=== PATIENT | female | born 1945 | race Caucasian/White ===

== ENCOUNTER → 2020-04-12 07:00 | Day surgery (SDC) | payer MEDICARE, OTHER, SELFPAY ==
[2020-04-12 07:38] VITALS: BP 137/58; PULSE 72; RESP 18; TEMP 36.7; O2SAT 97; BMI 26.2
[2020-04-12] MEDS: ferric carboxy (IVPB) 750 MG in sodium chloride 0.9% (100 ml) 100 ML 345 MG IV (08:06)
== END ==
PROVIDERS: PCP Internal Medicine; Visit Provider Internal Medicine
DX: I85.00 Esophageal varices without bleeding (principal)
CPT/HCPCS: 96365; J1439

== ENCOUNTER → 2020-04-19 06:58 | Day surgery (SDC) | payer MEDICARE, OTHER, SELFPAY ==
[2020-04-19 07:06] VITALS: BMI 26.2
[2020-04-19 07:17] VITALS: BP 136/67; PULSE 66; RESP 18; TEMP 36.2; O2SAT 97
[2020-04-19] MEDS: ferric carboxy (IVPB) 750 MG in sodium chloride 0.9% (100 ml) 100 ML 345 MG IV (07:38)
== END ==
PROVIDERS: PCP Internal Medicine; Visit Provider Internal Medicine
DX: I85.00 Esophageal varices without bleeding (principal)
CPT/HCPCS: 96365; J1439

== ENCOUNTER 2022-02-14 13:30 | Outpatient (CLI) | payer MEDICARE, OTHER, SELFPAY ==
--- NOTE | 2022-02-14 | US_ITS ---
WS: [id number] ULTRASOUND ABDOMEN LIMITED CLINICAL INFORMATION: CIRRHOSIS NONALCOHOLIC COMPARISON: None. FINDINGS: Liver Size: Small and cirrhotic Craniocaudal length: 10.5 cm. Echogenicity: Coarse and heterogeneous Surface nodularity: None. Mass (size and location): None. Bile ducts Intrahepatic ducts: Normal. Common bile duct diameter: 4 mm. Gallbladder Normal. Gallstones: None. Gallbladder sludge: None. Gallbladder wall thickening: None. Pericholecystic fluid: None. Sonographic Farrell sign: Absent. Pancreas Normal as visualized. Right kidney: Normal. Hydronephrosis: None. Size: 10.7 cm x 4.1 cm x 4.5 cm. Abdominal aorta and IVC Visualized portions are normal. Calcification. Ascites: None. US/US liver [id number] IMPRESSION: 1. Cirrhotic configuration to the liver with coarse echogenicity. 2. Normal gallbladder. 3. Normal common bile duct. 4. No hydronephrosis in RIGHT kidney.
== END 2022-02-14 13:31 | disposition home or self-care (01) ==
PROVIDERS: PCP Internal Medicine; Visit Provider Internal Medicine
DX: K74.60 Unspecified cirrhosis of liver (principal)
CPT/HCPCS: 76705

== ENCOUNTER 2022-09-07 10:43 | Emergency (ER) | payer MEDICARE, OTHER, SELFPAY ==
[2022-09-07 11:02] VITALS: BP 109/62; PULSE 69; RESP 18; TEMP 36.7; O2SAT 96; BMI 24.5
--- NOTE | 2022-09-07 13:04 | CT_ITS ---
WS: [id number] CT HEAD TECHNIQUE: Noncontrast CT of the head obtained from the skullbase to the vertex. CLINICAL INFORMATION: stroke rule out COMPARISON: None. DLP: 1162.[address] scans at [facility] use at least one of these dose optimization techniques: automated e xposure control; mA and/or kV adjustment per patient size (includes targeted exams where dose is matc hed to clinical indication); or iterative reconstruction. FINDINGS: No evidence of intracranial hemorrhage or mass effect. Ventricular system and basal cisterns are hoover nt. Mild small vessel changes with mild parenchymal volume loss. Vascular calcification. No extra-axi al fluid collections. No evidence of mass or mass effect. Paranasal sinuses and mastoid air cells are well aerated. .Normal visualized soft tissues. CT/CT head wo con* [id number] IMPRESSION: 1. No evidence of intracranial hemorrhage or mass effect. 2. Mild small vessel changes. Mild parenchymal volume loss. 3. Intracranial vascular calcification. 4. No acute intracranial findings.
[2022-09-07 13:47] VITALS: BP 113/68; PULSE 58; RESP 17; O2SAT 98
== END 2022-09-07 15:55 | disposition left against medical advice (07) ==
PROVIDERS: Emergency Provider Family Medicine; PCP Internal Medicine
DX: Z53.21 Procedure and treatment not carried out due to patient leaving prior to being seen by health care provider (principal)
CPT/HCPCS: 70450

== ENCOUNTER → 2022-09-12 09:07 | Outpatient (BNVA) | payer MEDICARE, OTHER, SELFPAY | PROVIDERS: PCP Internal Medicine; Visit Provider Podiatrist Foot & Ankle Surgery | DX: E11.42 Type 2 diabetes mellitus with diabetic polyneuropathy (principal); I73.9 Peripheral vascular disease, unspecified; L60.3 Nail dystrophy; L84 Corns and callosities; M20.41 Other hammer toe(s) (acquired), right foot; M20.42 Other hammer toe(s) (acquired), left foot; M21.41 Flat foot [pes planus] (acquired), right foot; M21.42 Flat foot [pes planus] (acquired), left foot | CPT/HCPCS: 11055; 11721; 99204 ==

== ENCOUNTER 2022-09-19 13:59 | Emergency (ER) | payer MEDICARE, OTHER, SELFPAY ==
[2022-09-19 14:03] VITALS: BP 157/69; PULSE 101; RESP 22; TEMP 37.7; O2SAT 91; BMI 24.5
--- NOTE | 2022-09-19 14:16 | XRR_ITS ---
PROCEDURE INFORMATION: Exam: XR Chest Exam date and time: 09/19/2022 2:23 PM Age: 76 years old Clinical indication: Cough and fever; Additional info: Fever and cough TECHNIQUE: Imaging protocol: Radiologic exam of the chest. Views: 1 view. COMPARISON: CR XR chest 2V* [id number] 09/12/2022 12:27 PM FINDINGS: Lungs: Unremarkable. No consolidation. Pleural spaces: Unremarkable. No pleural effusion. No pneumothorax. Heart/Mediastinum: Unremarkable. No cardiomegaly. Bones/joints: Unremarkable. XR/XR chest 1V portable [id number] IMPRESSION: No acute findings.
[2022-09-19 14:29] LABS: Basophils % 0.2 %; Eosinophils % 0.5 %; Hematocrit 33.4 % (37.0-47.0); Hemoglobin 10.9 g/dL (11.5-15.3); Lymphocytes # 0.5 10^3/uL (0.8-4.8); Lymphocytes % 10.6 %; Mean Corpuscular HGB Conc 32.6 g/dL (30.0-36.0); Mean Corpuscular Hemoglobin 31.1 pg (28.0-34.0); Mean Corpuscular Volume 95.4 fl (81-99); Mean Platelet Volume 11.3 fL (7.4-10.4); Monocytes # 0.3 10^3/uL (0.2-0.9); Monocytes % 7.8 %; Neutrophils # 3.43 10^3/uL (1.8-7.7); Neutrophils % 80.7 %; Nucleated Red Blood Cells % 0 %; Platelet Count 49 10^3/cmm (130-400); Red Cell Distribution Width 15.9 % (12.1-15.1); White Blood Count 4.3 10^3/uL (4.0-10.0)
[2022-09-19 14:44] LABS: Alanine Aminotransferase 17 U/L (0-33); Albumin Level 3.4 g/dL (3.5-5.2); Alkaline Phosphatase 132 U/L (35-105); Anion Gap 15.3 (5-19); Aspartate Amino Transferase 57 U/L (0-32); Blood Urea Nitrogen 10 mg/dL (8-23); Calcium 8.1 mg/dL (8.5-10.5); Carbon Dioxide 24 mmol/L (22-29); Chloride 100 mmol/L (98-107); Globulin 3.4 g/dL (1.3-4.6); Glucose 150 mg/dL (65-115); Osmolality Calculated 282 mOsm/kg (285-295); Potassium 4.3 mmol/L (3.5-5.1); Sodium 135 mmol/L (136-145); Total Bilirubin 2.5 mg/dL (0.15-1.2); Total Protein 6.8 g/dL (6.6-8.7)
[2022-09-19 14:56] LABS: Lactic Sepsis W/Reflex 2.2 mmol/L (0.5-2.2)
--- NOTE | 2022-09-19 14:57 | W.ED.URI ---
Documented by User: SUMAN Hudson 09/20/22 07:32 HPI - URI/Sore Throat General: Chief Complaint: Fever Stated Complaint: Fever Time Seen by Provider: 09/19/22 14:16 History of Present Illness: Patient is a 76-year-old female comes to the ED via EMS with upper respiratory symptoms. EMS gave patient DuoNeb breathing treatment in route. She has been having symptoms of cough, nasal congestion and drainage, fevers, chills and fatigue approximately 2 weeks ago. She was tested for influenza last week and it was positive. Over this past week her cough is gotten worse and she is feeling short of breath and more weak. She has trouble with ambulation at home because she feels so weak. She has been keeping fluids down and denies any episodes of emesis. She did have a couple episodes of diarrhea over the past week but that has since resolved. Her is currently hospitalized for pneumonia. Patient has been doing at home albuterol nebulizer breathing treatments and has not provided any relief. Associated symptoms: Reports chills, fever(s) and nasal congestion; Deny abdominal pain, chest pain, diarrhea, headache(s), nausea or vomiting Review of Systems Const: Reports: fever(s), chills and fatigue Eyes: Denies: change in vision or eye discomfort ENMT: Reports: nasal discharge and nasal congestion; Denies: throat pain or odynophagia Card: Denies: chest pain, palpitations, edema, swelling of feet/ankles, dyspnea on exertion or orthopnea Resp: Reports: dyspnea and non-productive cough; Denies: productive cough GI: Denies: abdominal pain, nausea, vomiting, diarrhea, constipation or hematochezia : Denies: flank pain, dysuria or hematuria Musc: Denies: neck pain, back pain or extremity swelling Skin/Breast: Denies: rash or new lesions Neuro: Denies: headache(s), numbness in extremities or weakness in extremities PFS ED PFSH: Medical History No pertinent family history Peripheral arterial disease Physical Exam Const: COMMON NORMALS: no acute distress, patient oriented x3 and alert GENERAL APPEARANCE: cooperative and comfortable HENMT: COMMON NORMALS: normocephalic HEAD & SCALP: normocephalic MOUTH: Normal oral and palatal mucosa present THROAT: posterior oropharynx normal and uvula midline Neck/C-Spine: COMMON NORMALS: supple GENERAL: Yes normal visual inspection Resp: COMMON NORMALS: normal respiratory effort, No retractions and No use of accessory muscles AUSCULTATION: diminished lung sounds bilateral in the lower lung galvan Cardio: COMMON NORMALS: regular rate, regular rhythm, S1 normal heart sound present, S2 normal heart sound present, No gallops present (Cardio), No clicks present (Cardio), No murmurs present (Cardio) and Peripheral pulses 2+ throughout RATE: regular rate RHYTHM: regular rhythm HEART SOUNDS: S1 normal heart sound present and S2 normal heart sound present PERIPHERAL PULSES: Peripheral pulses 2+ throughout GI: COMMON NORMALS: Normal to inspection, nondistended, normoactive bowel sounds present, Soft to palpation, non-tender and no masses PALPATION: Yes Soft to palpation : COMMON NORMALS: Yes no CVA tenderness BLADDER/KIDNEY EXAM: Yes no CVA tenderness Back/Pelvis: COMMON NORMALS: no CVA tenderness Extremity: COMMON NORMALS: normal to inspection Neuro: COMMON NORMALS: patient oriented x3 SENSORIUM/ORIENTATION: Yes alert GAIT: Yes Normal gait present Skin: GENERAL SKIN EXAM: dry skin Course Vital Signs: Vital signs: Vital Signs Temperature 98.4 F 09/19/22 16:45 Pulse Rate 99 09/19/22 16:45 Respiratory Rate 15 09/19/22 16:45 Blood Pressure 132/62 09/19/22 16:45 Pulse Oximetry 93 09/19/22 16:45 Oxygen Delivery Me thod 09/19/22 16:45 MDM - URI/Sore Throat Medical Decision Making Patient is a 76-year-old female comes to the ED via EMS with upper respiratory symptoms. EMS gave patient DuoNeb breathing treatment in route. She has been having symptoms of cough, nasal congestion and drainage, fevers, chills and fatigue approximately 2 weeks ago. She was tested for influenza last week and it was positive. Over this past week her cough is gotten worse and she is feeling short of breath and more weak. She has trouble with ambulation at home because she feels so weak. She has been keeping fluids down and denies any episodes of emesis. She did have a couple episodes of diarrhea over the past week but that has since resolved. Vitals are stable on patient's O2 sat is around 93 to 95% on room air. She appears nontoxic in no acute distress. She does not have any trouble breathing and upon auscultation diminished air sounds in the lower lungs bilaterally, but rest of exam is benign. CBC and CMP were unremarkable. Lactic was in normal range of 2.2. Chest x-ray showed no acute findings or pneumonia. She was given 1 L of IV fluids and DuoNeb breathing treatment here in the ED. O2 saturation levels remained stable at 93 to 95% on room air. Patient was diagnosed with influenza and was discharged home with a prescription for antibiotic and steroid. Told to follow-up with PCP within the next 3 to 5 days reevaluation. She was told to continue using her at home albuterol nebulizers as needed for any shortness of breath. She was given strict return to ED precautions. Patient understood and agreed with plan. Lab Data I reviewed the patient's lab results. 09/19/22 14:10 09/19/22 14:10 Radiology Impressions Chest X-Ray 09/19/22 14:16 IMPRESSION: No acute findings. Laboratory Results WBC 4.3 10^3/uL (4.0-10.0) 09/19/22 14:10 RBC 3.50 10^6/uL (4.1-5.3) L 09/19/22 14:10 Hgb 10.9 g/dL (11.5-15.3) L 09/19/22 14:10 Hct 33.4 % (37.0-47.0) L 09/19/22 14:10 MCV 95.4 fl (81-99) 09/19/22 14:10 MCH 31.1 pg (28.0-34.0) 09/19/22 14:10 MCHC 32.6 g/dL (30.0-36.0) 09/19/22 14:10 RDW 15.9 % (12.1-15.1) H 09/19/22 14:10 Plt Count 49 10^3/cmm (130-400) L 09/19/22 14:10 MPV 11.3 fL (7.4-10.4) H 09/19/22 14:10 Neut % (Auto) 80.7 % 09/19/22 14:10 Lymph % (Auto) 10.6 % 09/19/22 14:10 Cecil % (Auto) 7.8 % 09/19/22 14:10 Eos % (Auto) 0.5 % 09/19/22 14:10 Baso % (Auto) 0.2 % 09/19/22 14:10 Neut # (Auto) 3.43 10^3/uL (1.8-7.7) 09/19/22 14:10 Lymph # (Auto) 0.5 10^3/uL (0.8-4.8) L 09/19/22 14:10 Cecil # (Auto) 0.3 10^3/uL (0.2-0.9) 09/19/22 14:10 Eos # (Auto) 0.0 10^3/uL (0.0-0.8) 09/19/22 14:10 Baso # (Auto) 0.0 10^3/uL (0.0-0.1) 09/19/22 14:10 Nucleated RBC % (auto) 0 % 09/19/22 14:10 Nucleated RBCs # 0.0 /100WBC 09/19/22 14:10 Sodium 135 mmol/L (136-145) L 09/19/22 14:10 Potassium 4.3 mmol/L (3.5-5.1) 09/19/22 14:10 Chloride 100 mmol/L (98-107) 09/19/22 14:10 Carbon Dioxide 24 mmol/L (22-29) 09/19/22 14:10 Anion Gap 15.3 (5-19) 09/19/22 14:10 BUN 10 mg/dL (8-23) 09/19/22 14:10 Creatinine 0.4 mg/dL (0.5-0.9) L 09/19/22 14:10 GFR Calculation Not Reportable 09/19/22 14:10 Glucose 150 mg/dL (65-115) H 09/19/22 14:10 Calculated Osmolality 282 mOsm/kg (285-295) L 09/19/22 14:10 Lactic Acid 2.2 mmol/L (0.5-2.2) 09/19/22 14:36 Calcium 8.1 mg/dL (8.5-10.5) L 09/19/22 14:10 Total Bilirubin 2.5 mg/dL (0.15-1.2) H 09/19/22 14:10 AST 57 U/L (0-32) H 09/19/22 14:10 ALT 17 U/L (0-33) 09/19/22 14:10 Alkaline Phosphatase 132 U/L (35-105) H 09/19/22 14:10 Total Protein 6.8 g/dL (6.6-8.7) 09/19/22 14:10 Albumin 3.4 g/dL (3.5-5.2) L 09/19/22 14:10 Globulin 3.4 g/dL (1.3-4.6) 09/19/22 14:10 Discharge Plan Discharge Patient Disposition: Home Clinical Impression: Influenza Condition: Stable Prescriptions: New azithromycin 250 mg tablet 250 mg PO DAILY 4 Days Qty: 4 0RF Rx Instructions: start on day 2 of therapy Medrol (Darryl) 4 mg tablets,dose pack See Rx Instructions .ROUTE .COMPLEX Qty: 21 0RF Rx Instructions: orally per package directions budesonide 0.5 mg/2 mL suspension for nebulization 0.5 mg inhalation DAILY Qty: 60 0RF No Action bisoprolol-hydrochlorothiazide 2.5-6.25 mg tablet PO minocycline 100 mg capsule PO metoclopramide HCl 10 mg tablet PO Discharge Orders: Discharge ED (Routine); Ordered 09/19/22 Ordered By: Clifton Jeffery Referrals: Bonifacio Smith DO [Primary Care Provider] - Discharge Diet: Regular Discharge Activity: Increase activity as tolerated Patient Instructions: Influenza (ED) Activity Restrictions/Additional Instructions: Follow-up with medical provider as directed in the next 3 to 5 days for reevaluation. Take medications as prescribed. Make sure you are drinking plenty of fluids and staying hydrated. Return to the ER or your medical provider if condition worsens. Please read and understand discharge instructions. Thank you for choosing [facility] for your healthcare needs today. Please realize this is an emergency room and that we are providing you with a medical screening exam and this may not be complete and all inclusive of all the testing and or work up that you may need to determine your ailment or severity of your illness. It is very important that you follow up as instructed or that you return to the Emergency Department should you have concerns or if your condition changes or worsens in any way. Coding Level of Care Code ED Diabetes Nurse for Karyn Fwalexandra Exam Comprehensive Documented by User: Axel Arenas DO 09/20/22 10:09 HPI - URI/Sore Throat General: Chief Complaint: Fever Stated Complaint: Fever Time Seen by Provider: 09/19/22 14:16 [facility] ED PFSH: Medical History No pertinent family history Peripheral arterial disease Course Vital Signs: Vital signs: Vital Signs Temperature 98.4 F 09/19/22 16:45 Pulse Rate 99 09/19/22 16:45 Respiratory Rate 15 09/19/22 16:45 Blood Pressure 132/62 09/19/22 16:45 Pulse Oximetry 93 09/19/22 16:45 Oxygen Delivery Me thod 09/19/22 16:45 MDM - URI/Sore Throat Medical Decision Making Patient is a 76-year-old female comes to the ED via EMS with upper respiratory symptoms. EMS gave patient DuoNeb breathing treatment in route. She has been having symptoms of cough, nasal congestion and drainage, fevers, chills and fatigue approximately 2 weeks ago. She was tested for influenza last week and it was positive. Over this past week her cough is gotten worse and she is feeling short of breath and more weak. She has trouble with ambulation at home because she feels so weak. She has been keeping fluids down and denies any episodes of emesis. She did have a couple episodes of diarrhea over the past week but that has since resolved. Vitals are stable on patient's O2 sat is around 93 to 95% on room air. She appears nontoxic in no acute distress. She does not have any trouble breathing and upon auscultation diminished air sounds in the lower lungs bilaterally, but rest of exam is benign. CBC and CMP were unremarkable. Lactic was in normal range of 2.2. Chest x-ray showed no acute findings or pneumonia. She was given 1 L of IV fluids and DuoNeb breathing treatment here in the ED. O2 saturation levels remained stable at 93 to 95% on room air. Patient was diagnosed with influenza and was discharged home with a prescription for antibiotic and steroid. Told to follow-up with PCP within the next 3 to 5 days reevaluation. She was told to continue using her at home albuterol nebulizers as needed for any shortness of breath. She was given strict return to ED precautions. Patient understood and agreed with plan. Chart reviewed and patient discussed with midlevel. Agree with assessment and plan. Lab Data 09/19/22 14:10 09/19/22 14:10 Radiology Impressions Chest X-Ray 09/19/22 14:16 IMPRESSION: No acute findings. Laboratory Results WBC 4.3 10^3/uL (4.0-10.0) 09/19/22 14:10 RBC 3.50 10^6/uL (4.1-5.3) L 09/19/22 14:10 Hgb 10.9 g/dL (11.5-15.3) L 09/19/22 14:10 Hct 33.4 % (37.0-47.0) L 09/19/22 14:10 MCV 95.4 fl (81-99) 09/19/22 14:10 MCH 31.1 pg (28.0-34.0) 09/19/22 14:10 MCHC 32.6 g/dL (30.0-36.0) 09/19/22 14:10 RDW 15.9 % (12.1-15.1) H 09/19/22 14:10 Plt Count 49 10^3/cmm (130-400) L 09/19/22 14:10 MPV 11.3 fL (7.4-10.4) H 09/19/22 14:10 Neut % (Auto) 80.7 % 09/19/22 14:10 Lymph % (Auto) 10.6 % 09/19/22 14:10 Cecil % (Auto) 7.8 % 09/19/22 14:10 Eos % (Auto) 0.5 % 09/19/22 14:10 Baso % (Auto) 0.2 % 09/19/22 14:10 Neut # (Auto) 3.43 10^3/uL (1.8-7.7) 09/19/22 14:10 Lymph # (Auto) 0.5 10^3/uL (0.8-4.8) L 09/19/22 14:10 Cecil # (Auto) 0.3 10^3/uL (0.2-0.9) 09/19/22 14:10 Eos # (Auto) 0.0 10^3/uL (0.0-0.8) 09/19/22 14:10 Baso # (Auto) 0.0 10^3/uL (0.0-0.1) 09/19/22 14:10 Nucleated RBC % (auto) 0 % 09/19/22 14:10 Nucleated RBCs # 0.0 /100WBC 09/19/22 14:10 Sodium 135 mmol/L (136-145) L 09/19/22 14:10 Potassium 4.3 mmol/L (3.5-5.1) 09/19/22 14:10 Chloride 100 mmol/L (98-107) 09/19/22 14:10 Carbon Dioxide 24 mmol/L (22-29) 09/19/22 14:10 Anion Gap 15.3 (5-19) 09/19/22 14:10 BUN 10 mg/dL (8-23) 09/19/22 14:10 Creatinine 0.4 mg/dL (0.5-0.9) L 09/19/22 14:10 GFR Calculation Not Reportable 09/19/22 14:10 Glucose 150 mg/dL (65-115) H 09/19/22 14:10 Calculated Osmolality 282 mOsm/kg (285-295) L 09/19/22 14:10 Lactic Acid 2.2 mmol/L (0.5-2.2) 09/19/22 14:36 Calcium 8.1 mg/dL (8.5-10.5) L 09/19/22 14:10 Total Bilirubin 2.5 mg/dL (0.15-1.2) H 09/19/22 14:10 AST 57 U/L (0-32) H 09/19/22 14:10 ALT 17 U/L (0-33) 09/19/22 14:10 Alkaline Phosphatase 132 U/L (35-105) H 09/19/22 14:10 Total Protein 6.8 g/dL (6.6-8.7) 09/19/22 14:10 Albumin 3.4 g/dL (3.5-5.2) L 09/19/22 14:10 Globulin 3.4 g/dL (1.3-4.6) 09/19/22 14:10 Discharge Plan Discharge Patient Disposition: Home Clinical Impression: Influenza Condition: Stable Prescriptions: New azithromycin 250 mg tablet 250 mg PO DAILY 4 Days Qty: 4 0RF Rx Instructions: start on day 2 of therapy Medrol (Draryl) 4 mg tablets,dose pack See Rx Instructions .ROUTE .COMPLEX Qty: 21 0RF Rx Instructions: orally per package directions budesonide 0.5 mg/2 mL suspension for nebulization 0.5 mg inhalation DAILY Qty: 60 0RF No Action bisoprolol-hydrochlorothiazide 2.5-6.25 mg tablet PO minocycline 100 mg capsule PO metoclopramide HCl 10 mg tablet PO Discharge Orders: Discharge ED (Routine); Ordered 09/19/22 Ordered By: Clifton Jeffery Referrals: Bonifacio Smith, [Primary Care Provider] - Discharge Diet: Regular Discharge Activity: Increase activity as tolerated Patient Instructions: Influenza (ED) Activity Restrictions/Additional Instructions: Follow-up with medical provider as directed in the next 3 to 5 days for reevaluation. Take medications as prescribed. Make sure you are drinking plenty of fluids and staying hydrated. Return to the ER or your medical provider if condition worsens. Please read and understand discharge instructions. Thank you for choosing [facility] for your healthcare needs today. Please realize this is an emergency room and that we are providing you with a medical screening exam and this may not be complete and all inclusive of all the testing and or work up that you may need to determine your ailment or severity of your illness. It is very important that you follow up as instructed or that you return to the Emergency Department should you have concerns or if your condition changes or worsens in any way. Coding Level of Care Code ED Diabetes Nurse for Karyn Anders Exam Comprehensive
[2022-09-19 15:22] VITALS: BP 148/69; PULSE 78; RESP 15; O2SAT 94
[2022-09-19] MEDS: ipratropium-albuterol 3 mL Neb 6 ML INHALATION (15:39)
[2022-09-19 15:40] VITALS: PULSE 83; RESP 20; O2SAT 93
[2022-09-19 15:58] VITALS: PULSE 102
[2022-09-19] MEDS: azithromycin 250 mg Tablet 500 MG PO (16:07)
[2022-09-19 16:09] VITALS: BP 139/75; PULSE 104; RESP 15; TEMP 37.6; O2SAT 95
[2022-09-19 16:25] LABS: Reflex Lactate Order REFLEX LACTIC ORDERD
[2022-09-19 16:45] VITALS: BP 132/62; PULSE 99; RESP 15; TEMP 36.9; O2SAT 93
== END 2022-09-19 16:40 | disposition home or self-care (01) ==
PROVIDERS: Emergency Provider Physician Assistant; PCP Internal Medicine
DX: J11.1 Influenza due to unidentified influenza virus with other respiratory manifestations (principal)
CPT/HCPCS: 36415; 71045; 80053; 83605; 85025; 94640; 96374; 99284; J2930; Q0144

== ENCOUNTER → 2022-12-14 12:43 | Outpatient (BNVA) | payer MEDICARE, OTHER, SELFPAY | PROVIDERS: PCP Internal Medicine; Visit Provider Podiatrist Foot & Ankle Surgery | DX: I73.9 Peripheral vascular disease, unspecified (principal); E11.42 Type 2 diabetes mellitus with diabetic polyneuropathy; L84 Corns and callosities; L60.8 Other nail disorders; L60.3 Nail dystrophy; M20.42 Other hammer toe(s) (acquired), left foot; M21.41 Flat foot [pes planus] (acquired), right foot; M21.42 Flat foot [pes planus] (acquired), left foot; M20.41 Other hammer toe(s) (acquired), right foot | CPT/HCPCS: 11055; 11721 ==

== ENCOUNTER → 2023-03-29 12:57 | Outpatient (BNVA) | payer MEDICARE, OTHER, SELFPAY | PROVIDERS: PCP Internal Medicine; Visit Provider Podiatrist Foot & Ankle Surgery | DX: I73.9 Peripheral vascular disease, unspecified (principal); L60.8 Other nail disorders; E11.42 Type 2 diabetes mellitus with diabetic polyneuropathy; M20.41 Other hammer toe(s) (acquired), right foot; M20.42 Other hammer toe(s) (acquired), left foot; M21.41 Flat foot [pes planus] (acquired), right foot; M21.42 Flat foot [pes planus] (acquired), left foot | CPT/HCPCS: 11721 ==

== ENCOUNTER → 2023-06-13 15:13 | Outpatient (BNVA) | payer MEDICARE, OTHER, SELFPAY | PROVIDERS: PCP Internal Medicine; Visit Provider Podiatrist Foot & Ankle Surgery | DX: L60.8 Other nail disorders (principal); I73.9 Peripheral vascular disease, unspecified; E11.42 Type 2 diabetes mellitus with diabetic polyneuropathy; M20.41 Other hammer toe(s) (acquired), right foot; M20.42 Other hammer toe(s) (acquired), left foot; M21.41 Flat foot [pes planus] (acquired), right foot; M21.42 Flat foot [pes planus] (acquired), left foot | CPT/HCPCS: 11721 ==

== ENCOUNTER → 2023-08-15 13:46 | Outpatient (BNVA) | payer MEDICARE, OTHER, SELFPAY | PROVIDERS: PCP Internal Medicine; Visit Provider Podiatrist Foot & Ankle Surgery | DX: I73.9 Peripheral vascular disease, unspecified (principal); M20.41 Other hammer toe(s) (acquired), right foot; M20.42 Other hammer toe(s) (acquired), left foot; M21.41 Flat foot [pes planus] (acquired), right foot; M21.42 Flat foot [pes planus] (acquired), left foot; L60.3 Nail dystrophy; L84 Corns and callosities | CPT/HCPCS: 11055; 11721 ==

== ENCOUNTER → 2023-10-17 12:42 | Outpatient (BNVA) | payer MEDICARE, OTHER, SELFPAY | PROVIDERS: PCP Internal Medicine; Visit Provider Podiatrist Foot & Ankle Surgery | DX: I73.9 Peripheral vascular disease, unspecified (principal); M20.41 Other hammer toe(s) (acquired), right foot; M20.42 Other hammer toe(s) (acquired), left foot; M21.41 Flat foot [pes planus] (acquired), right foot; M21.42 Flat foot [pes planus] (acquired), left foot; L60.3 Nail dystrophy | CPT/HCPCS: 11721 ==

== ENCOUNTER → 2024-01-16 13:43 | Outpatient (BNVA) | payer MEDICARE, OTHER, SELFPAY | PROVIDERS: PCP Internal Medicine; Visit Provider Podiatrist Foot & Ankle Surgery | DX: I73.9 Peripheral vascular disease, unspecified (principal); M20.41 Other hammer toe(s) (acquired), right foot; M20.42 Other hammer toe(s) (acquired), left foot; M21.41 Flat foot [pes planus] (acquired), right foot; M21.42 Flat foot [pes planus] (acquired), left foot; L60.3 Nail dystrophy; L84 Corns and callosities | CPT/HCPCS: 11055; 11721 ==

== ENCOUNTER → 2024-04-23 13:48 | Outpatient (BNVA) | payer MEDICARE, OTHER, SELFPAY | PROVIDERS: PCP Internal Medicine; Visit Provider Podiatrist Foot & Ankle Surgery | DX: I73.9 Peripheral vascular disease, unspecified (principal); M20.41 Other hammer toe(s) (acquired), right foot; M20.42 Other hammer toe(s) (acquired), left foot; M21.41 Flat foot [pes planus] (acquired), right foot; M21.42 Flat foot [pes planus] (acquired), left foot; L60.3 Nail dystrophy; L84 Corns and callosities | CPT/HCPCS: 11055; 11721 ==

== ENCOUNTER 2024-06-07 16:19 | Emergency (ER) | payer MEDICARE, OTHER, SELFPAY ==
[2024-06-07] VITALS (17 sets, daily range): BP systolic 137–171; BP diastolic 60–95; PULSE 62–84; RESP 12–24; TEMP 36.8; O2SAT 92–98; BMI 26.4
--- NOTE | 2024-06-07 16:21 | XRR_ITS ---
PROCEDURE INFORMATION: Exam: XR Chest Exam date and time: 06/07/2024 4:41 PM Age: 78 years old Clinical indication: Pain; Chest pressure; Additional info: Chest pain TECHNIQUE: Imaging protocol: Radiologic exam of the chest. Views: 1 view. COMPARISON: CR XR chest 1V portable [id number] 09/19/2022 2:23 PM FINDINGS: Lungs: There is calcified granuloma at the right lung base. Visualized portions of the lungs are clear. Pleural spaces: Unremarkable. No pleural effusion. No pneumothorax. Heart/Mediastinum: Heart is within normal limits of size. Bones/joints: There are degenerative changes in the thoracic spine. XR/XR chest 1V portable [id number] IMPRESSION: No acute infiltrate.
--- NOTE | 2024-06-07 16:27 | ECG_ITS ---
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 Measurements Intervals [place] Rate: 65 P: 36 DE: 160 QRS: 139 QRSD: 113 T: 41 QT: 421 QTc: 440 Interpretive Statements SINUS RHYTHM POSSIBLE RIGHT VENTRICULAR HYPERTROPHY [SOME/ALL OF: PROMINENT R IN V1, LATE TRANSITION, RAD, MARILYN, SSS] POSSIBLE ANTERIOR MYOCARDIAL INFARCTION , OF INDETERMINATE AGE [30 ms Q WAVE IN V3/V4, OR R < 0.2 mV IN V4] INTERPRETATION BASED ON A DEFAULT AGE OF 40 YEARS No previous ECG available for comparison Electronically Signed On 06-09-2024 18:50:55 CDT by Vitor Fung M.D. [email or web address]
[2024-06-07 17:26] LABS: Basophils % 0.6 %; Eosinophils % 2.6 %; Hematocrit 34.3 % (36-47); Lymphocytes # 0.4 10^3/uL (0.8-4.8); Lymphocytes % 25.6 %; Mean Corpuscular HGB Conc 32.4 g/dL (30-55); Mean Corpuscular Hemoglobin 29.8 pg (27-33); Mean Corpuscular Volume 92.2 fl (85-98); Mean Platelet Volume 10.7 fL (7.4-10.4); Monocytes # 0.1 10^3/uL (0.2-0.9); Neutrophils % 62.2 %; Nucleated Red Blood Cells % 0 %; Platelet Count 37 10^3/cmm (157-399); Red Blood Count 3.72 10^6/uL (3.85-5.65); Red Cell Distribution Width 17.7 % (12.1-15.1); White Blood Count 1.56 10^3/uL (3.29-11.43)
[2024-06-07 17:37] LABS: Neutrophils # 0.97 10^3/uL (1.8-7.7)
[2024-06-07 17:45] LABS: Alanine Aminotransferase 24 U/L (0-33); Albumin Level 3.6 g/dL (3.5-5.2); Alkaline Phosphatase 120 U/L (35-105); Anion Gap 12.8 (5-19); Aspartate Amino Transferase 72 U/L (0-32); Blood Urea Nitrogen 12 mg/dL (8-23); Calcium 8.1 mg/dL (8.5-10.5); Carbon Dioxide 23 mmol/L (22-29); Chloride 103 mmol/L (98-107); Creatinine Clr Calc Pharmacy 49.8125; Globulin 2.8 g/dL (1.3-4.6); Glucose 239 mg/dL (65-115); Osmolality Calculated 288 mOsm/kg (285-295); Potassium 3.8 mmol/L (3.5-5.1); Sodium 135 mmol/L (136-145); Total Bilirubin 1.6 mg/dL (0.15-1.2); Total Protein 6.4 g/dL (6.6-8.7); Troponin(5th) Baseline < 6 ng/L (0-10)
[2024-06-07 17:48] LABS: Slide Review Slide Review Perform
--- NOTE | 2024-06-07 18:21 | ECG_ITS ---
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 Measurements Intervals [place] Rate: 61 P: 53 TN: 187 QRS: -25 QRSD: 120 T: 43 QT: 427 QTc: 432 Interpretive Statements SINUS RHYTHM VOLTAGE CRITERIA FOR LVH [MEETS CRITERIA IN ONE OF: R(aVL), S(V1), R(V5), R(V5/V6)+S(V1)] POSSIBLE SEPTAL MYOCARDIAL INFARCTION , OF INDETERMINATE AGE [30 ms Q WAVE IN V1/V2] Compared to ECG 06/07/2024 16:27:40 Left ventricular hypertrophy now present Myocardial infarct finding still present Electronically Signed On 06-09-2024 18:58:53 CDT by Vitor Fung M.D. [id number]
[2024-06-07 19:43] LABS: Bilirubin Urine Negative (Negative); Blood Urine Negative (Negative); Glucose Urine UA Trace (Normal); Ketones Urine Negative (Negative); Leukocyte Esterase Urine Negative (Negative); Nitrate Urine Negative (Negative); Protein Urine Negative (Negative); Specific Gravity, Urine 1.013 (1.005-1.030); Urine Appearance Clear (CLEAR); Urine Color Yellow (Yellow); Urobilinogen Urine 0.2 mg/dL (Negative); pH Urine 5.5 (5-7)
[2024-06-07 19:48] LABS: Bacteria Urine None Seen /hpf; RBC Urine 0-2 /hpf (0-2); Squamous Epithelial Cell Urine 0-5 /hpf (0-5); WBC Urine 0-5 /hpf (0-5)
[2024-06-07 19:50] LABS: Troponin 5 2HR Delta 0.00001 ABS# (0-10)
--- NOTE | 2024-06-07 20:12 | CTR_ITS ---
PROCEDURE INFORMATION: Exam: CT Abdomen And Pelvis Without Contrast Exam date and time: 06/07/2024 8:20 PM Age: 78 years old Clinical indication: Abdominal pain; Flank; Left; Additional info: L flank pain TECHNIQUE: Imaging protocol: Computed tomography of the abdomen and pelvis without contrast. Radiation optimization: All CT scans at this facility use at least one of these dose optimization techniques: automated exposure control; mA and/or kV adjustment per patient size (includes targeted exams where dose is matched to clinical indication); or iterative reconstruction. COMPARISON: 1. [place] liver [id number] 02/14/2022 10:[address] abdomen pelvis wo con [id number] 08/16/2016 9:53 AM RADIATION DOSE METRICS: Total DLP (mGy-cm): 497.03 FINDINGS: Liver: Liver has somewhat nodular contours in keeping with cirrhosis. There is a 2.5 x 3.9 cm sized hypodensity segment 4 left lobe of the liver such as an image number 31 series 3. Most likely this is related to a dilated recanalized periumbilical vein, however underlying hepatic mass lesion not excluded. Consider further evaluation with non urgent imaging with contrast-enhanced CT scan or MRI. Gallbladder and biliary ducts: Multiple calcified gallstones are present. There is no gallbladder wall thickening or pericholecystic fluid. Common bile duct measures 9 mm, larger than on the previous examination but not unusual for the patient's age. Pancreas: Normal. No ductal dilation. Spleen: There is moderate nonspecific splenomegaly.This is not changed from the previous examination. No focal abnormality is seen within the spleen. Adrenal glands: Normal. No mass. Kidneys and ureters: The kidneys are normal. There is no evidence of hydronephrosis. There is no evidence of renal or ureteral calcifications. Stomach and bowel: Moderate diverticulosis is present in the distal colon. There is no evidence of colitis/diverticulitis. There is no evidence of intestinal obstruction. Appendix: Not identified Intraperitoneal space: There is no evidence of free intraperitoneal fluid. Vasculature: There are paraesophageal and gastric varices somewhat larger than on 2016 exam. The aorta demonstrates mild atherosclerotic calcification. There is no evidence of an abdominal aortic aneurysm. Lymph nodes: There are small periaortic lymph nodes but no adenopathy. Urinary bladder: Unremarkable as visualized. Reproductive: There has been a hysterectomy. Bones/joints: There is a large serpiginous vascular structure anterior to the left lobe of the liver which appears to communicate with the chest wall in the region of the xiphisternum and may represent some unusual form of shunt vascularity. This vessel is engorged up to 13 mm in diameter, previously 7.5 mm on 08/16/2016. The lumbar spine demonstrates moderate degenerative changes at multiple levels. There is no evidence of acute fracture. Soft tissues: Unremarkable. CT/CT kidney stone [id number] IMPRESSION: 1. Cirrhosis 2. Splenomegaly 3. Portal hypertension 4. Gastric and paraesophageal varices 5. Cholelithiasis 6. No urinary tract calculi are identified
[2024-06-07 20:18] LABS: Glucose Point of Care 80 mg/dL (70-110)
--- NOTE | 2024-06-08 07:11 | ED_ITS ---
HPI - Chest Pain 2 General: Chief Complaint: Chest Pain Stated Complaint: chest pain Time Seen by Provider: 06/07/24 16:20 History of Present Illness: 71-year-old female with a pain to her le ft flank and side for the past 3 weeks or so. Today, she noticed that her left arm tingles and which worried her. She had mild short of breath, no fever, no change in no vomiting. Related Data Home Medications Medication Instructions Recorded Confirmed bisoprolol 2.5 ea PO 09/12/22 04/23/24 mg-hydrochlorothiazide 6.25 mg tablet metoclopramide HCl 10 mg tablet ea PO 09/12/22 04/23/24 minocycline 100 mg capsule ea PO 09/12/22 04/23/24 glipizide 5 mg tablet, extended 5 mg PO DAILY 04/23/24 04/23/24 release 24 hr Previous Rx's Medication Instructions Recorded budesonide 0.5 mg/2 mL suspension 0.5 mg (2 mL) inhalation DAILY #60 09/19/22 for nebulization mL methylprednisolone 4 mg tablets in See Rx Instructions PO .COMPLEX 09/19/22 a dose pack (Medrol (Darryl)) #21 ea tramadol 50 mg tablet 25 mg (1/2 x 50 mg) PO QID PRN 06/07/24 pain #14 tabs Allergies Allergy/AdvReac Type Severity Reaction Status Date / Time shellfish derived Allergy ADR-Nausea Verified 04/23/24 13:52 COUNT INCLUDES THE [facility] ED 2 PFSH: Medical History No pertinent family history Peripheral arterial disease Social History Smoking and tobacco/nicotine status: never used tobacco/nicotine Physical Exam 2 Const: COMMON NORMALS: no acute distress GENERAL APPEARANCE: cooperative; not ill appearing and not frail appearing HENMT: COMMON NORMALS: normocephalic, atraumatic and Normal external nose present HEAD & SCALP: normocephalic and atraumatic FACE & SINUS: normal facial exam and face symmetric NOSE: Normal external nose present Eye: COMMON NORMALS: Equal, round and reactive pupils present and EOMs intact bilaterally PUPIL: Yes Equal, round and reactive pupils present Neck/C-Spine: GENERAL: Yes trachea midline Chest: CHEST: Yes Symmetrical chest wall rise Resp: COMMON NORMALS: normal respiratory effort, No retractions, No use of accessory muscles and clear to auscultation bilaterally AUSCULTATION: clear to auscultation bilaterally Cardio: COMMON NORMALS: regular rate and regular rhythm RATE: regular rate RHYTHM: regular rhythm GI: COMMON NORMALS: Normal to inspection, nondistended, normoactive bowel sounds present : BLADDER/KIDNEY EXAM: Yes CVA tenderness on the left (mild) Back/Pelvis: GENERAL BACK: Yes CVA tenderness Extremity: COMMON NORMALS: no pedal edema Neuro: LINDSAY COMA SCALE: document GCS findings [place] coma scale eye opening: Spontaneous [place] coma scale verbal response: Orientated [place] coma scale motor response: Obey commands Lindsay coma scale total score: 15 S ENSORY EXAM: Yes extremities (intact) Psych: COMMON NORMALS: speech normal SPEECH: Yes normal speech Skin: COMMON NORMALS: no rashes or lesions noted GENERAL SKIN EXAM: no rashes or lesions noted Course 2 Vital Signs: Vital signs: Vital Signs Temperature 98.2 F 06/07/24 16:35 Pulse Rate 62 06/07/24 22:40 Respiratory Rate 14 06/07/24 22:40 Blood Pressure 141/65 06/07/24 22:40 Pulse Oximetry 95 06/07/24 22:40 Oxygen Delivery Me thod Room Air 06/07/24 20:58 MDM - Chest Pain Medical Decision Making Pain is minimally reproducible on the left flank. No history of pancytopenia. Platelet count of 37, hemoglobin 11, white blood cell count 1.5. He is not critically neutropenic. Chest x-ray shows no infiltrates. Abdominal CT shows. Cirrhosis and splenomegaly. No definite acute left flank pain. Patient will be allowed home. Symptomatic control. Close outpatient follow-up Lab Data 06/07/24 17:12 06/07/24 17:12 Radiology Impressions Chest X-Ray 06/07/24 16:21 IMPRESSION: No acute infiltrate. Abdomen/Pelvis CT 06/07/24 20:12 IMPRESSION: 1. Cirrhosis 2. Splenomegaly 3. Portal hypertension 4. Gastric and paraesophageal varices 5. Cholelithiasis 6. No urinary tract calculi are identified Laboratory Results WBC 1.56 10^3/uL (3.29-11.43) L 06/07/24 17:12 RBC 3.72 10^6/uL (3.85-5.65) L 06/07/24 17:12 Hgb 11.10 g/dL (11.27-16.99) L 06/07/24 17:12 Hct 34.3 % (36-47) L 06/07/24 17:12 MCV 92.2 fl (85-98) 06/07/24 17:12 MCH 29.8 pg (27-33) 06/07/24 17:12 MCHC 32.4 g/dL (30-55) 06/07/24 17:12 RDW 17.7 % (12.1-15.1) H 06/07/24 17:12 Plt Count 37 10^3/cmm (157-399) L 06/07/24 17:12 MPV 10.7 fL (7.4-10.4) H 06/07/24 17:12 Neut % (Auto) 62.2 % 06/07/24 17:12 Lymph % (Auto) 25.6 % 06/07/24 17:12 Ware % (Auto) 9.0 % 06/07/24 17:12 Eos % (Auto) 2.6 % 06/07/24 17:12 Baso % (Auto) 0.6 % 06/07/24 17:12 Neut # (Auto) 0.97 10^3/uL (1.8-7.7) L* 06/07/24 17:12 Lymph # (Auto) 0.4 10^3/uL (0.8-4.8) L 06/07/24 17:12 Ware # (Auto) 0.1 10^3/uL (0.2-0.9) L 06/07/24 17:12 Eos # (Auto) 0.0 10^3/uL (0.0-0.8) 06/07/24 17:12 Baso # (Auto) 0.0 10^3/uL (0.0-0.1) 06/07/24 17:12 Nucleated RBC % (auto) 0 % 06/07/24 17:12 Nucleated RBCs # 0.0 /100WBC 06/07/24 17:12 Sodium 135 mmol/L (136-145) L 06/07/24 17:12 Potassium 3.8 mmol/L (3.5-5.1) 06/07/24 17:12 Chloride 103 mmol/L (98-107) 06/07/24 17:12 Carbon Dioxide 23 mmol/L (22-29) 06/07/24 17:12 Anion Gap 12.8 (5-19) 06/07/24 17:12 BUN 12 mg/dL (8-23) 06/07/24 17:12 Creatinine 0.4 mg/dL (0.5-0.9) L 06/07/24 17:12 GFR Calculation Not Reportable 06/07/24 17:12 Glucose 239 mg/dL (65-115) H 06/07/24 17:12 POC Glucose 80 mg/dL (70-110) 06/07/24 20:15 Calculated Osmolality 288 mOsm/kg (285-295) 06/07/24 17:12 Calcium 8.1 mg/dL (8.5-10.5) L 06/07/24 17:12 Total Bilirubin 1.6 mg/dL (0.15-1.2) H 06/07/24 17:12 AST 72 U/L (0-32) H 06/07/24 17:12 ALT 24 U/L (0-33) 06/07/24 17:12 Alkaline Phosphatase 120 U/L (35-105) H 06/07/24 17:12 Troponin T Baseline < 6 ng/L (0-10) 06/07/24 17:12 Troponin T 120 Minute 6.00 ng/L (0-10) 06/07/24 19:29 Delta Troponin T 0.84809 ABS# (0-10) 06/07/24 19:29 Total Protein 6.4 g/dL (6.6-8.7) L 06/07/24 17:12 Albumin 3.6 g/dL (3.5-5.2) 06/07/24 17:12 Globulin 2.8 g/dL (1.3-4.6) 06/07/24 17:12 Urine Color Yellow (Yellow) 06/07/24 19:38 Urine Appearance Clear (CLEAR) 06/07/24 19:38 Urine pH 5.5 (5-7) 06/07/24 19:38 Ur Specific [place] 1.013 (1.005-1.030) 06/07/24 19:38 Urine Protein Negative (Negative) 06/07/24 19:38 Urine Glucose (UA) Trace (Normal) H 06/07/24 19:38 Urine Ketones Negative (Negative) 06/07/24 19:38 Urine Blood Negative (Negative) 06/07/24 19:38 Urine Nitrate Negative (Negative) 06/07/24 19:38 Urine Bilirubin Negative (Negative) 06/07/24 19:38 Urine Urobilinogen 0.2 mg/dL (Negative) 06/07/24 19:38 Ur Leukocyte Esterase Negative (Negative) 06/07/24 19:38 Urine RBC 0-2 /hpf (0-2) 06/07/24 19:38 Urine WBC 0-5 /hpf (0-5) 06/07/24 19:38 Ur Squamous Epith Cells 0-5 /hpf (0-5) 06/07/24 19:38 Amorphous Sediment Not Reportable 06/07/24 19:38 Urine Bacteria None seen /hpf (NONE) 06/07/24 19:38 Hyaline Casts 0.40 /lpf 06/07/24 19:38 All radiology interpretation(s) finalized by discharge Discharge Plan Discharge Patient Disposition: Home Clinical Impression: Left flank pain Condition: Stable Prescriptions: New tramadol 50 mg tablet 25 mg PO QID PRN (Reason: pain) Qty: 14 0RF No Action bisoprolol-hydrochlorothiazide 2.5-6.25 mg tablet PO minocycline 100 mg capsule PO metoclopramide HCl 10 mg tablet PO glipizide 5 mg tablet extended release 24hr 5 mg PO DAILY Medrol (Darryl) 4 mg tablets,dose pack See Rx Instructions .ROUTE .COMPLEX Qty: 21 0RF Rx Instructions: orally per package directions budesonide 0.5 mg/2 mL suspension for nebulization 0.5 mg inhalation DAILY Qty: 60 0RF Discharge Orders: Discharge ED (Routine); Ordered 06/07/24 Ordered By: Lenard Irwin Referrals: Bonifacio Smith DO [Primary Care Provider] - 4-7 days Patient Instructions: Flank Pain (ED), Opioid Safety, Pain Management Activity Restrictions/Additional Instructions: Return for fever greater than 100, vomiting liquids or medications, worsening pain despite treatment, any other concerning symptoms. Call your doctor on Sunday, and see them this coming week. Coding Level of Care Code ED School Operations Manager for Karyn Anders
== END 2024-06-07 22:36 | disposition home or self-care (01) ==
PROVIDERS: Emergency Medicine; Emergency Provider Emergency Medicine; PCP Internal Medicine
DX: R10.9 Unspecified abdominal pain (principal); Z79.84 Long term (current) use of oral hypoglycemic drugs
CPT/HCPCS: 36415; 36416; 71045; 74176; 80053; 81001; 82962; 84484; 85025; 93005; 99285

== ENCOUNTER → 2024-07-23 15:29 | Outpatient (BNVA) | payer MEDICARE, OTHER, SELFPAY | PROVIDERS: PCP Internal Medicine; Visit Provider Podiatrist Foot & Ankle Surgery | DX: I73.9 Peripheral vascular disease, unspecified (principal); L84 Corns and callosities; L60.3 Nail dystrophy | CPT/HCPCS: 11056; 11721 ==

== ENCOUNTER → 2024-11-12 13:11 | Outpatient (BNVA) | payer MEDICARE, OTHER, SELFPAY | PROVIDERS: PCP Internal Medicine; Visit Provider Podiatrist Foot & Ankle Surgery | DX: I73.9 Peripheral vascular disease, unspecified (principal); L84 Corns and callosities; L60.3 Nail dystrophy | CPT/HCPCS: 11055; 11721 ==

== ENCOUNTER 2025-01-26 14:23 | Oncology outpatient (recurring) (ONCR) | payer MEDICARE, OTHER, SELFPAY ==
[2025-01-12 16:20] LABS: Basophils % 0.5 %; Eosinophils # 0.1 10^3/uL (0.0-0.8); Eosinophils % 2.4 %; Hematocrit 37.2 % (36-47); Lymphocytes # 0.5 10^3/uL (0.8-4.8); Lymphocytes % 23.9 %; Mean Corpuscular HGB Conc 32.8 g/dL (30-55); Mean Corpuscular Hemoglobin 29.8 pg (27-33); Mean Platelet Volume 12.2 fL (7.4-10.4); Monocytes # 0.2 10^3/uL (0.2-0.9); Monocytes % 11.5 %; Neutrophils # 1.28 10^3/uL (1.8-7.7); Neutrophils % 61.2 %; Nucleated Red Blood Cells % 0 %; Platelet Count 35 10^3/cmm (157-399); Red Blood Count 4.09 10^6/uL (3.85-5.65); Red Cell Distribution Width 16.8 % (12.1-15.1); White Blood Count 2.09 10^3/uL (3.29-11.43)
[2025-01-12 16:24] LABS: Slide Review Slide Review Perform
[2025-01-12 16:53] LABS: Alanine Aminotransferase 17 U/L (0-33); Albumin Level 3.8 g/dL (3.5-5.2); Alkaline Phosphatase 115 U/L (35-105); Anion Gap 16.4 (5-19); Aspartate Amino Transferase 56 U/L (0-32); Blood Urea Nitrogen 12 mg/dL (8-23); Carbon Dioxide 22 mmol/L (22-29); Chloride 103 mmol/L (98-107); Creatinine Clr Calc Pharmacy 49.3356; Ferritin 24 ng/mL (15-150); Globulin 3.2 g/dL (1.3-4.6); Glucose 237 mg/dL (65-115); Iron 116 ug/dL (37-145); Osmolality Calculated 293 mOsm/kg (285-295); Potassium 3.4 mmol/L (3.5-5.1); Sodium 138 mmol/L (136-145); Thyroid Stimulating Hormone 2.19 uIU/mL (0.27-4.20); Total Bilirubin 2.1 mg/dL (0.15-1.2); Total Iron Binding Capacity 297 mcg/dl; Unsaturated Iron Binding 181 ug/dL (112-347)
[2025-01-12 17:03] LABS: Folate Level 12.3 ng/mL (4.8-37.3)
[2025-01-13 05:11] LABS: PROTEIN, TOTAL 6.8 g/dL (6.1-8.1)
[2025-01-14 09:25] LABS: ALBUMIN 3.8 g/dL (3.8-4.8); ALPHA 1 GLOBULIN 0.3 g/dL (0.2-0.3); ALPHA 2 GLOBULIN 0.5 g/dL (0.5-0.9); BETA 1 GLOBULIN 0.4 g/dL (0.4-0.6); BETA 2 GLOBULIN 0.3 g/dL (0.2-0.5); GAMMA GLOBULIN 1.5 g/dL (0.8-1.7)
[2025-01-16 19:59] LABS: Immunofixation Serum Normal pattern.
== END 2025-02-07 23:59 | disposition home or self-care (01) ==
PROVIDERS: PCP Internal Medicine; Visit Provider Internal Medicine Medical Oncology
DX: D61.818 Other pancytopenia (principal); R03.0 Elevated blood-pressure reading, without diagnosis of hypertension; D75.9 Disease of blood and blood-forming organs, unspecified; K74.60 Unspecified cirrhosis of liver
CPT/HCPCS: 36415; 80053; 82728; 82746; 83540; 83550; 84155; 84165; 84443; 85025; 86334; 99205; 99214

== ENCOUNTER → 2025-02-09 13:02 | Outpatient (BNVA) | payer MEDICARE, OTHER, SELFPAY | PROVIDERS: PCP Internal Medicine; Visit Provider Podiatrist Foot & Ankle Surgery | DX: E11.8 Type 2 diabetes mellitus with unspecified complications (principal); L60.3 Nail dystrophy; L84 Corns and callosities; I73.9 Peripheral vascular disease, unspecified | CPT/HCPCS: 11055; 11721 ==

== ENCOUNTER 2025-03-20 09:00 | Oncology outpatient (recurring) (ONCR) | payer MEDICARE, OTHER, SELFPAY ==
[2025-03-10 11:56] LABS: Hematocrit 35.0 % (36-47); Hemoglobin 11.40 g/dL (11.27-16.99); Mean Corpuscular HGB Conc 32.6 g/dL (30-55); Mean Corpuscular Hemoglobin 29.4 pg (27-33); Mean Corpuscular Volume 90.2 fl (85-98); Nucleated Red Blood Cells % 0 %; Platelet Count 35 10^3/cmm (157-399); Red Blood Count 3.88 10^6/uL (3.85-5.65); White Blood Count 1.49 10^3/uL (3.29-11.43)
[2025-03-10 12:14] LABS: Alanine Aminotransferase 18 U/L (0-33); Albumin Level 3.6 g/dL (3.5-5.2); Alkaline Phosphatase 116 U/L (35-105); Anion Gap 15.1 (5-19); Aspartate Amino Transferase 61 U/L (0-32); Blood Urea Nitrogen 11 mg/dL (8-23); Calcium 8.5 mg/dL (8.5-10.5); Carbon Dioxide 20 mmol/L (22-29); Chloride 102 mmol/L (98-107); Creatinine Clr Calc Pharmacy 49.0091; Ferritin 26 ng/mL (15-150); Globulin 3.0 g/dL (1.3-4.6); Glucose 292 mg/dL (65-115); Osmolality Calculated 286 mOsm/kg (285-295); Potassium 4.1 mmol/L (3.5-5.1); Sodium 133 mmol/L (136-145); Total Protein 6.6 g/dL (6.6-8.7)
[2025-03-10 12:30] LABS: Vitamin B12 826 pg/mL (232-1245)
[2025-03-20] MEDS: ferric derisomaltose 1,000 MG in sodium chloride 0.9% (100 ml) 100 ML 330 MG IV (09:26)
[2025-03-20 10:00] VITALS: BP 133/64; PULSE 64; RESP 17; TEMP 36.6; O2SAT 93
== END 2025-04-09 23:59 | disposition home or self-care (01) ==
PROVIDERS: PCP Internal Medicine; Visit Provider Internal Medicine Medical Oncology
DX: D64.9 Anemia, unspecified; Z79.899 Other long term (current) drug therapy; Z53.9 Procedure and treatment not carried out, unspecified reason
CPT/HCPCS: 36415; 80053; 82607; 82728; 82746; 85025; 96365; 99214; J1437

== ENCOUNTER → 2025-05-18 11:37 | Outpatient (BNVA) | payer MEDICARE, OTHER, SELFPAY | PROVIDERS: PCP Internal Medicine; Visit Provider Podiatrist Foot & Ankle Surgery | DX: E11.8 Type 2 diabetes mellitus with unspecified complications (principal); L60.3 Nail dystrophy; L84 Corns and callosities; I73.9 Peripheral vascular disease, unspecified; S90.851A Superficial foreign body, right foot, initial encounter; X58.XXXA Exposure to other specified factors, initial encounter | CPT/HCPCS: 11055; 11721; 28190 ==

== ENCOUNTER 2025-06-17 12:18 | Oncology outpatient (recurring) (ONCR) | payer MEDICARE, OTHER, SELFPAY ==
[2025-06-17 12:45] LABS: Hematocrit 39.9 % (36-47); Hemoglobin 13.80 g/dL (11.27-16.99); Mean Corpuscular HGB Conc 34.6 g/dL (30-55); Mean Corpuscular Hemoglobin 32.9 pg (27-33); Mean Corpuscular Volume 95.0 fl (85-98); Nucleated Red Blood Cells % 0 %; Platelet Count 38 10^3/cmm (157-399); Red Blood Count 4.20 10^6/uL (3.85-5.65); White Blood Count 2.32 10^3/uL (3.29-11.43)
[2025-06-17 13:06] LABS: Alanine Aminotransferase 23 U/L (0-33); Albumin Level 3.8 g/dL (3.5-5.2); Alkaline Phosphatase 124 U/L (35-105); Aspartate Amino Transferase 78 U/L (0-32); Blood Urea Nitrogen 8 mg/dL (8-23); Calcium 8.6 mg/dL (8.5-10.5); Carbon Dioxide 23 mmol/L (22-29); Chloride 106 mmol/L (98-107); Creatinine Clr Calc Pharmacy 48.5701; Ferritin 256 ng/mL (15-150); Globulin 3.3 g/dL (1.3-4.6); Glucose 150 mg/dL (65-115); Osmolality Calculated 291 mOsm/kg (285-295); Sodium 140 mmol/L (136-145); Total Protein 7.1 g/dL (6.6-8.7)
[2025-06-17 13:22] LABS: Vitamin B12 1081 pg/mL (232-1245)
[2025-06-17 13:23] LABS: Anion Gap 14.7 (5-19); Potassium 3.7 mmol/L (3.5-5.1)
== END 2025-07-10 23:59 | disposition home or self-care (01) ==
PROVIDERS: Internal Medicine Medical Oncology; PCP Internal Medicine; Visit Provider Nurse Practitioner
DX: D61.818 Other pancytopenia (principal); D50.9 Iron deficiency anemia, unspecified; K74.60 Unspecified cirrhosis of liver; R03.0 Elevated blood-pressure reading, without diagnosis of hypertension
CPT/HCPCS: 36415; 80053; 82607; 82728; 82746; 85025; 99214

== ENCOUNTER 2025-08-02 22:15 | Emergency (ER) | payer MEDICARE, OTHER, SELFPAY ==
--- OUTSIDE RECORDS SUMMARY | 2025-04-28 08:00 | XMS_ITS ---
Author Organization [facility] Address [address] [place] [address] Care Team Providers Care Business Leader Name Role Phone Milton Pugh Primary Care Provider UnavailKim Bo Unavailable [phone] Merrick Strange MD Unavailable Unavailable David Cage Unavailable [phone] Allergies Allergen (clinical drug ingredient) Drug/Non Drug Allergy documented on EMR Reaction Allergy Type Onset Date Status empagliflozin Jardiance UTIS Drug Allergy Act celestina Shellfish (FN) Shellfish-derived Products Unknown Drug Allergy Active REASON FOR VISIT Esophageal varices without bleeding, unspecified esophageal varices type - Unspecified cirrhosis ofliver - Medications Medication SIG (Take, Route, Frequency, Duration) Notes Start Date End Date Status Vitamin D-3 25 MCG (1000 UT) Capsule 1 capsule Orally Once a day Active Metoclopramide HCl 10 MG Tablet 1 tablet before meals Orally once a day Unknown metFORMIN HCl ER 500 MG Tablet Extended Release 24 Hour 1 tablet with evening meal Orally Once a day Unknown Cristel-C 500-550 MG Tablet 1 tablet Orall y once a day Unknown Cetirizine HCl 10 MG Tablet 1 tablet Ora lly Once a day Unknown Turmeric 500 MG Capsule as directed Orally Active PriLOSEC OTC 20 MG Tablet Delayed Release 1 tablet 30 minutes before morning meal Orally Once a day Active PreserVision AREDS 2 - Capsule as directed Orally Active Ondansetron 4 MG Tablet Disintegrating 1 tablet on the tongue and allow to dissolve Orally 3 times a day; Duration: 2 days 04/02/2025 Active Manati 3 1000 MG Capsule 1 capsule Orally Three times a day Active Neuriva - Capsule as directed Orally Active Lactulose 20 GM/30ML Solution 15 mL as needed, as directed Orally twice a day; Duration: 30 days 04/02/2025 Active glipiZIDE 5 MG Tablet 1 tablet 30 minute s before breakfast Orally Once a day Active DULoxetine HCl 20 MG Capsule Delayed Release Particles 1 capsule Orally Once a day Active Bisoprolol-hydroCHLOROthiazi de 2.5-6.25 MG Tablet 1 tablet Orally Once a day Active Encounters Encounter Location Date Provider Diagnosis [facility] [address] [place] [address] 04/28/2025 David Goldsteinlakeishanirav History of adenomatous polyp of colon Z86.010 ; Unspecified cirrhosis of liver K74.60 and Esophageal varices without bleeding, unspecified esophageal varices type I85.00 Assessments Encounter Date Diagnosis (ICD Code) Assessment Notes Treatment Notes Treatment Clinical Notes Section Notes 04/28/2025 History of adenomatous polyp of colon (ICD-10 - Z86.010) Proceed with high risk surveillance colonoscopy today. 04/28/2025 Unspecified cirrhosis of liver (ICD-10 - K74.60) Proceed with surveillance EGD today. 04/28/2025 Esophageal varices without bleeding, unspecified esophageal varices type (ICD-10 - I85.00) Plan Of Treatment Treatment Notes Assessment Notes History of adenomatous polyp of colon Pr oceed with high risk surveillance colonoscopy today. Unspecified cirrhosis of liver Proceed w ith surveillance EGD today. Next Appt Details Provider Name:Kim tomlin, 10/08/2025 01:30:00 PM, [address], [place], [address], History and Physical Notes * HPI (History of Present Illness) Category Sub-Category Detail Notes Category Not es Provider Note Ms. Flores is a 79-year-old female patient of Dr. Pugh presenting today for EGD for variceal surveillance as well as surveillance colonoscopy. 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 History of grade 1 esophageal varices in 2021. Last colonoscopy in August 2020 significant for multiple adenomatous polyps. Examination Category Sub-Category Detail Notes Category Not es General Examination GENERAL APPEARANCE: Alert, c omfortable, in no acute distress HEART: Regular rate and rhy thm. LUNGS: Non-labored respirat ions. Clear bilaterally. Symmetrical. 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 Flores is a 79-year-old female patient of Dr. Pugh presenting today for E GD for variceal surveillance as well as surveillance colonoscopy. 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 History of grade 1 esophageal varices in 2021. Last colonoscopy in August 2020 significant for multiple adenomatous polyps. * ROS: G eneral - Multi System: Constitutional D enies fever, chills, body aches. . C ardiovascular D enies c hest pain, palpitations or syncope. R espiratory D enies shortness of breath. * Medical History: Problem:Arthritis (disorder) , Status :: Active Problem:Diabetes mellitus type 2 (disorder) , Status :: Active Problem:Gastroesophageal reflux disease (disorder) , Status :: Active Problem:Hyperlipidemia (disorder) , Status :: Active Problem:Hypertensive disorder, systemic arterial (disorder) , Status :: Active Osteoporosis Rosacea Hemorrhoids HX blood transfusion during Sciatica Fatty liver Chronic bladder infections Measles, mumps, chickenpox Anemia Bladder infections Back Trouble Bronchitis Cataracts Cirrhosis Colonic polyps Kidney disease Rashes, Skin Problems * Surgical History: section 12/1973 tubal ligation bilateral 12/1974 cataract-lens implants both eyes 07/2014 hysterectomy, total 02/1980 Bone marrow extraction 2010 * Hospitalization/Major Diagno stic Procedure: surgeries * Medications: T akingBisoprolol-hydroCHLOROthiazide 2.5-6.25 MG Tablet 1 tablet Orally Once a day Lactulose 20 GM/30ML Solution 15 mL as needed, as directed Orally twice a day Ondansetron 4 MG Tablet Disintegrating 1 tablet on the tongue and allow to dissolve Orally 3 times a day PriLOSEC OTC 20 MG Tablet Delayed Release 1 tablet 30 minutes before morning meal Orally Once a day Vitamin D-3 25 MCG (1000 UT) Capsule 1 capsule Orally Once a day PreserVision AREDS 2 - Capsule as directed Orally glipiZIDE 5 MG Tablet 1 tablet 30 minutes before breakfast Orally Once a day Neuriva - Capsule as directed Orally Manati 3 1000 MG Capsule 1 capsule Orally Three times a day Turmeric 500 MG Capsule as directed Orally DULoxetine HCl 20 MG Capsule Delayed Release Particles 1 capsule Orally Once a day Taking Bisoprolol-hydroCHLOROthiazide 2.5- 6.25 MG Tablet 1 tablet Orally Once a day Taking Lactulose 20 GM/30ML Solution 15 mL as needed, as directed Orally twice a day Taking Ondansetron 4 MG Tablet Disintegrating 1 tablet on the tongue and allow to dissolve Orally 3 times a day Taking PriLOSEC OTC 20 MG Tablet Delayed Release 1 tablet 30 minutes before morning meal Orally Once a day Taking Vitamin D-3 25 MCG (1000 UT) Capsule 1 capsule Orally Once a day Taking PreserVision AREDS 2 - Capsule as directed Orally Taking glipiZIDE 5 MG Tablet 1 tablet 30 minutes before breakfast Orally Once a day Taking Neuriva - Capsule as directed Orally Taking Manati 3 1000 MG Capsule 1 capsule Orally Three times a day Taking Turmeric 500 MG Capsule as directed Orally Taking DULoxetine HCl 20 MG Capsule Delayed Release Particles 1 capsule Orally Once a day UnknownCetirizine HCl 10 MG Tablet 1 tablet Orally Once a day Cristel-C 500-550 MG Tablet 1 tablet Orally once a day metFORMIN HCl ER 500 MG Tablet Extended Release 24 Hour 1 tablet with evening meal Orally Once a day Metoclopramide HCl 10 MG Tablet 1 tablet before meals Orally once a day Unknown Cetirizine HCl 10 MG Tablet 1 tablet Orally Once a day Unknown Cristel-C 500-550 MG Tablet 1 tablet Orally once a day Unknown metFORMIN HCl ER 500 MG Tablet Extended Release 24 Hour 1 tablet with evening meal Orally Once a day Unknown Metoclopramide HCl 10 MG Tablet 1 tablet before meals Orally once a day * Allergies: S hellfish-derived Products: AllergyJardiance: UTIS - Side Effects Objective: * Examination: G eneral Examination: GENERAL APPEARANCE: A lert, comfortable, in no acute distress. HEART: R egular rate and rhythm. LUNGS: N on-labored respirations. Clear bilaterally. Symmetrical. ABDOMEN: N ormal, Soft, Non-tender, positive bowel sounds.? Assessment: * Assessment: 1. H istory of adenomatous polyp of colon - Z86.010 (Primary) 2 . U nspecified cirrhosis of liver - K74.60 3 . E sophageal varices without bleeding, unspecified esophageal varices type - I85.00 Plan: * Treatment: 2. U nspecified cirrhosis of liver Notes: Proceed with surveillance EGD today. Billing Information: * Procedure Codes: * Electronic signature of Abod janae Cage MD on 08/02/2025 at 10:28 PM REEL [employer]ADE BENDER F[employer]NA[employer] TENDER Sign off status: Pending * Provider: Sabi Cage MD Date: 0 04/28/2025 Generated for Edwin schafer/Elias/eTransmitting on: 1 10/02/2024 10:28 PM REEL BLADE BENDER FURNACE TENDER
[2025-08-02 22:22] VITALS: BP 169/63; PULSE 65; RESP 20; TEMP 36.9; O2SAT 94; BMI 26.4
--- NOTE | 2025-08-02 22:26 | ECG_ITS ---
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 Measurements Intervals [place] Rate: 66 P: 59 NH: 181 QRS: -34 QRSD: 123 T: 37 QT: 411 QTc: 432 Interpretive Statements SINUS RHYTHM LEFT AXIS DEVIATION [QRS AXIS < -30] POSSIBLE LEFT VENTRICULAR HYPERTROPHY [VOLTAGE CRITERIA PLUS LAE OR QRS WIDENING] POSSIBLE ANTEROSEPTAL MYOCARDIAL INFARCTION , OF INDETERMINATE AGE [30 ms Q WAVE IN V1-V4] INTERPRETATION BASED ON A DEFAULT AGE OF 40 YEARS Compared to ECG 06/07/2024 19:38:29 Left-axis deviation now present Myocardial infarct finding still present Electronically Signed On 08-03-2025 10:40:47 [employer] by Wally Gamboa M.D. [email or web address]
--- OUTSIDE RECORDS SUMMARY | 2025-08-02 22:29 | XMS_ITS | Continuity of Care Document ---
Author Organization ARIANNE Pepper [facility] Zabrina, [facility] Address [address] [place] [address] Care Team Providers Care Integration Assistant Name Role Phone BONIFACIO PEREIRA Primary Care Provider Unavailabl e Assessment Encounter Date Assessment Date Assessment LastModified by Organization Details LastModified Time 06/24/2025 06/24/2025 Patient presents with symptoms of UTI. Results of dipstick were negative for UTI. Advised to drink clear fluids, Tylenol for pain and take prescribed medications as instructed. Patient encouraged to follow up within 1 week if not improving. [email or web address] Not available 06/24/2025 16:50:34 Plan of Treatment Reminders Order Date Submit Date Provider Last Modified By Organization Details Last Modified Time Details Appointments None recorded. Lab ESR (erythrocyt e sedimentati on rate), blood 2024 025 [facility] ([facility]), [address] [place], [address], 09:02:20 urinalysis, complete 2024 025 [facility], [address], [facility] [address], [place], [address], 16:38:25 culture, urine 2024 025 [facility], [address], [address] [place], [address], 01:41:58 hemoglobin A1C/hemoglo bin total, QN, blood 2024 025 [facility], [address], [address], [place], [address], 17:25:55 Referral None recorded. Procedures None recorded. Surgeries None recorded. Imaging None recorded. Medication Orders None recorded. Patient TargetsNo targets recorded. Patient InstructionsNo instructions recorded. Reason for Referral None Reported. Results Created Date Observation Date Name Description Value Unit Range Abnormal Flag Note LastModifiedBy Organization Detail LastModifiedTime 06/24/2006/24/2025 URINA LYSIS WITH MICRO color YELLOW Not Available [facility] [address] [facility] [address], [place], [address], 06/24/2025 16:38:24 06/24/2006/24/2025 URINA LYSIS WITH MICRO clarity CLEAR Not Available [facility] [address] [facility] [address], [place], [address], 06/24/2025 16:38:24 06/24/2006/24/2025 URINA LYSIS WITH MICRO glu NEGATI VE Not Available [facility] [address] [facility] [address], [place], [address], 06/24/2025 16:38:24 06/24/2006/24/2025 URINA LYSIS WITH MICRO bili NEGATI VE Not Available [facility] [address], [place], [address], 06/24/2025 16:38:24 06/24/2006/24/2025 URINA LYSIS WITH MICRO ket NEGATI VE Not Available [facility] [address] [facility] [address], [place], [address], 06/24/2025 16:38:24 06/24/20 25 06/24/2025 URINA LYSIS WITH MICRO S.g 1.010 1.005- 1.025 Not Available [facility] [address], [place], [address], 06/24/2025 16:38:24 06/24/20 25 06/24/2025 URINA LYSIS WITH MICRO pH 6.0 5.0-7. 0 Not Available [facility] [address], [place], [address], 06/24/2025 16:38:24 06/24/20 25 06/24/2025 URINA LYSIS WITH MICRO pro NEGATI VE Not Available [facility] [address], [place], [address], 06/24/2025 16:38:24 06/24/20 25 06/24/2025 URINA LYSIS WITH MICRO uro 2.0 E.U./D L Not Available [facility] [address], [place], [address], 06/24/2025 16:38:24 06/24/20 25 06/24/2025 URINA LYSIS WITH MICRO nit NEGATI VE Not Available [facility] [address], [place], [address], 06/24/2025 16:38:24 06/24/20 25 06/24/2025 URINA LYSIS WITH MICRO blo NEGATI VE Not Available [facility] [address], [place], [address], 06/24/2025 16:38:24 06/24/20 25 06/24/2025 URINA LYSIS WITH MICRO neva NEGATI VE Not Available [facility] [address], [place], [address], 06/24/2025 16:38:24 06/24/20 25 06/24/2025 URINA LYSIS WITH MICRO WBC 2-3 Not Available [facility] [address] [facility] [address], [place], [address], 06/24/2025 16:38:24 06/24/20 25 06/24/2025 URINA LYSIS WITH MICRO RBC 0-1 Not Available [facility] [address] [facility] [address], [place], [address], 06/24/2025 16:38:24 06/24/20 25 06/24/2025 URINA LYSIS WITH MICRO epi cells 6-8 Not Available [facility] [address] [facility] [address], [place], [address], 06/24/2025 16:38:24 06/24/20 25 06/24/2025 URINA LYSIS WITH MICRO bacteria NEGATI VE Not Available [facility] [address] [facility] [address], [place], [address], 06/24/2025 16:38:24 06/24/20 25 06/24/2025 URINA LYSIS WITH MICRO other NG Not Available [facility] [address] [facility] [address], [place], [address], 06/24/2025 16:38:24 06/24/20 25 06/24/2025 HBA1C hemaglobin A1C 6.0 4.2-6. 5 Not Available [facility] [address] [facility] [address], [place], [address], 06/24/2025 17:25:55 06/24/20 25 06/26/2025 CULTU RE, URINE , ROUTI NE culture, urine, routine SEE NOTE CULTU RE, URINE , ROUTI NE Micro Numbe r: [id number] Test Statu s: Final Speci men Sourc e: Urine Speci men Quali ty: Adequ ate Resul t: No Growt h Not Available [facility] [address], [place], [address], 06/26/2025 01:41:58 06/24/20 25 06/24/2025 ESR (eryt hrocy te sedim entat ion rate) , blood SedRate [address] [facility] ([facility]) [address] [place], [address], 06/24/2025 16:52:29 Result Notes None recorded. Problems Name Problem SNOMED Code Status Onset Date Resolution Date Notes Provider Name and Address Organization Details Recorded Time Hypertens celestina disorder 69627362 Active 2022 HYPERTENS ION, ESSENTIAL ; Recorded 3 1:40PM by Patria Bagley RN, Office Visit; Promoted; acuity set as *; JAS butler [facility] 5 16:50:25 Cirrhosis of liver 16881772 Active 2022 CIRRHOSIS , NONALCOHO LIC; Recorded 3 1:40PM by Patria Bagley RN, Office Visit; Promoted; acuity set as *; ESOPHAGE AL VARICES IN CIRRHOSIS ; Recorded 3 3:34PM by Ivy Ball PA-C, Luz broderick/Echo ramirez; Promoted; acuity set as *; ; Start Date : 3 CIRRHOS IS, NONALCOHO LIC; Recorded 3 3:34PM by Ivy Ball PA-C, Luz broderick/Echo ramirez; Promoted; acuity set as *; ; Start Date : 3 JAS butler [facility] 5 16:50:25 History of disorder of digestive system 830981080 Active 2022 HISTORY OF ESOPHAGEA L VARICES; Story: seen on EGD Grade 1 no bleeding [place] 08/29; Recorded 3 1:40PM by Patria Bagley RN, Office Visit; Promoted; acuity set as *; JAS butler [facility] 5 16:50:25 Pancytope alexandru 345809259 Active 2022 PANCYTOPE ALEXANDRU; Recorded 3 1:40PM by Patria Bagley, RN, Office Visit; Promoted; acuity set as *; PANCYTOP ENIA; Recorded 3 3:35PM by Ivy Ball PA-C, Annotatio n/Addendu m; Promoted; acuity set as *; ; Start Date : 3 Milton Pugh MD [address] [place] [address], [address], [facility] 5 17:32:51 Type 2 diabetes mellitus without complicat ion 300551858 Active 2022 DIABETES TYPE 2, CONTROLLE D; Recorded 3 1:40PM by Patria Bagley RN, Office Visit; Promoted; acuity set as *; CONTROLL ED TYPE 2 DIABETES MELLITUS, WITHOUT LONG-TERM CURRENT USE OF INSULIN; Recorded 3 3:34PM by Ivy Ball PA-C, Annotatio n/Addendu m; Promoted; acuity set as *; ; Start Date : 3 JAS butler [facility] 5 16:50:25 Osteoarth ritis 466251740 Active 2024 JAS butler [facility] 5 16:50:25 Pain of bilateral knee joints 275586426662 104 Active 2024 JAS butler [facility] 5 16:50:25 Gastroeso phageal reflux disease 163726480 Active 2024 JAS butler [facility] 5 16:50:25 Dysuria 97881503 Active 2024 Milton Pugh MD [address] [place] [address], [address], [facility] 17:24:29 Well controlle d type 2 diabetes mellitus 612405754 Active 2024 Milton Pugh MD [address] [place] [address], [address], [facility] 17:33:24 Multiple actinic keratoses 779614736 Active 2024 Milton Pugh MD [address] [place] [address], [address], [facility], [facility].L[facility] 17:33:42 Essential hypertens ion 09809929 Active 2024 Milton Pugh MD [address] [place] [address], [address], [facility], EvonneL[facility]CCharles 17:37:01 Acute urinary tract infection 314962219 Active 2024 Milton Pugh MD [address] [place] [address], [address], [facility] 17:41:38 Type 2 diabetes mellitus 21273170 Active 2024 Milton Pugh MD [address] [place] [address], [address], [facility] 16:51:08 Problem Notes None recorded. Procedures Surgical History Date Name Laterality Status Provider Name and Address Organization Details Recorded Time 04/01/20 25 Cryo Lesion-#1 completed Milton Pugh MD [address] [place] [address], [address], [facility], [facility] 04/01/2025 17:34:47 Caesarean Section completed [facility], [place] 12/21/2023 14:51:26 Total Hysterectomy completed [facility], [place] 12/21/2023 14:51:34 procedure on urinary bladder completed Sruthiaaliyah Pierson [facility], [place] 12/21/2023 14:51:53 LASIK completed [facility], [place] 12/21/2023 14:52:08 Imaging Results None recorded. Procedure Notes None recorded. Medical Equipment None Reported. Allergies Allergen ID Allergen Name Allergen Category Reaction Reaction Severity Criticality Documentation Date Start Date Code Code System Note Provider Name and Address Organization Details Recorded Time 37065 Shellfish (substanc e) food,medi cation abdominal pain vomiting moderate mild low 04/07/2023 49828 9006 SNOMED React ion: Abdom inal pain, Nause a Sruthiaaliyah Pierson [facility], [place] 14:49:58 Medications Name Sig Start Date Stop Date Status Note LastModified by Organization Details LastModified Time ferny dexa,diph ,nystat,t etra 0.5/12.5/ 739498/3g ga SWISH AND EXPECTOR ATE A SMALL AMOUNT IN MOUTH FOUR TIMES DAILY FOR 14 DAYS 12/02 completed Not Available Not Available Not Available amoxicill in 500 mg capsule TAKE 1 CAPSULE BY MOUTH THREE TIMES DAILY 12/02 completed Not Available Not Available Not Available pilocarpi ne 5 mg tablet TAKE 1 TABLET BY MOUTH ONCE DAILY FOR 7 DAYS AND IF TOLERATI NG IT AND STILL DRY, INCREASE TO 1 TAB TWICE DAILY 04/01 completed Not Available Not Available Not Available diclofena c 3 % topical gel APPLY TOPICALL Y TO LESION THREE TIMES DAILY NEEDED 2024 active Not Available Not Available Not Avai lable cetirizin e 10 mg tablet Take 1 tablet by mouth every day active Not Available Not Available No t Available azithromy smooth 250 mg tablet TAKE 1 TABLET BY MOUTH ONCE DAILY 02/14 completed Not Available Not Available Not Available Lidocaine Viscous 2 % mucosal solution Take 15 mL every 3 hours by oral route. 12/02 completed Not Available Not Available Not Available sulfameth oxazole 400 mg-trimet hoprim 80 mg tablet TAKE 1 TABLET BY MOUTH EVERY 12 HOURS FOR 7 DAYS 04/07 completed Not Available Not Available Not Available minocycli ne 100 mg capsule TAKE 1 CAPSULE BY MOUTH TWICE A DAY FOR 4-6 WEEKS. FOR FUTURE FLARES TAKE 1 CAP TWICE A DAY FOR 2 WEEKS 12/02 completed Not Available Not Available Not Available glipizide ER 5 mg tablet, extended release 24 hr Take 1 tablet by mouth once daily 2024 active Not Available Not Available Not Avai lable Accu-Chek Softclix Lancets USE 1 LANCET TO CHECK GLUCOSE TWICE DAILY active Not Available Not Available No t Available bisoprolo l 2.5 mg-hydroc hlorothia zide 6.25 mg tablet TAKE 1 TABLET BY MOUTH ONCE DAILY IN THE MORNING 2024 active Not Available Not Available Not Avai lable tramadol 50 mg tablet TAKE 1/2 (ONE-RHONDA F) TABLET BY MOUTH 4 TIMES DAILY NEEDED FOR PAIN 04/01 completed Not Available Not Available Not Available oxycodone -acetamin ophen 5 mg-325 mg tablet TAKE 1 TABLET BY MOUTH EVERY 6 HOURS NEEDED FOR PAIN 12/02 completed Not Available Not Available Not Available magnesium oxide 400 mg (241.3 mg magnesium ) tablet Take 1 tablet every day by oral route. 10/06 completed Not Available Not Available Not Available Cipro 500 mg tablet Take 1 tablet twice a day by oral route for 5 days. 05/18 completed Not Available Not Available Not Available metronida zole 0.75 % topical cream APPLY TO CLEAN DRY FACE ONCE A DAY DIRECTED 05/06 completed Not Available Not Available Not Available omeprazol e 20 mg capsule,d elayed release TAKE 1 CAPSULE BY MOUTH TWICE DAILY NEEDED active Not Available Not Available No t Available budesonid e 0.5 mg/2 mL suspensio n for nebulizat ion USE 1 VIAL IN NEBULIZE R ONCE DAILY 12/20 completed Not Available Not Available Not Available methylpre dnisolone 4 mg tablets in a dose pack USE DIRECTED 12/02 completed Not Available Not Available Not Available ondansetr on 4 mg disintegr ating tablet DISSOLVE 1 TABLET ON TOP OF TONGUE AND SWALLOW WITH SALIVA FOUR TIMES DAILY NEEDED. active Not Available Not Available No t Available cefdinir 300 mg capsule Take 1 capsule every 12 hours by oral route for 7 days. 04/27 completed Not Available Not Available Not Available metoclopr amide 10 mg tablet TAKE ONE TABLET BY MOUTH 30 MINUTES PRIOR TO STARTING COLON PREP 05/06 completed Not Available Not Available Not Available nitrofura ntoin monohydra te/macroc rystals 100 mg capsule Take 1 capsule every 12 hours by oral route for 7 days. 04/15 completed Not Available Not Available Not Available lactulose 10 gram/15 mL oral solution TAKE 15 ML BY MOUTH TWICE DAILY NEEDED DIRECTED active Not Available Not Available No t Available bisoprolo l-hydroch lorothiaz jamal every morning 05/07 completed cs/smf; 08034; Recorded 10/27/19 7:52AM by Twyla Marie (Authori zed through Mason Smith MD), Refill Request; Refill Quantity : 0; Not Available Not Available Not Available omeprazol e daily 04/01 completed Not Available Not Available Not Available lancets two times daily 2020 active Not Available Not Available Not Avai lable promethaz ine three times daily, as needed 12/02 completed for cough; Recorded 09/25/19 1:58PM by Bonifacio Pereira DO, Office Visit; Refill Quantity : 0; Not Available Not Available Not Available minocycli ne 05/07 completed derm; 0; Recorded 09/25/19 1:41PM by Edna Bagley RN, Office Visit; Not Available Not Available Not Available Vitamin D3 daily 12/02 completed 0; Recorded 09/25/19 1:41PM by Edna Bagley RN, Office Visit; Not Available Not Available Not Available Cristel C daily active Not Available Not Avail able Not Available OneTouch UltraMini kit two times daily 2020 active please give lancets and strips that are compatib le with machine VO CS/smf E11.65; 08616; Recorded 09/25/19 1:41PM by Edna Bagley RN (Authori zed through Bonifacio Pereira DO), Office Visit; Refill Quantity : 0; Not Available Not Available Not Available peg 3350-elec trolytes 236 gram-22.7 4 gram-6.74 gram-5.86 gram solution MIX AND DRINK 240 MILLILIT ERS BY MOUTH EVERY 15 MINUTES DIRECTED active Not Available Not Available No t Available Probiotic Acidophil us daily 12/02 completed 0; Recorded 09/25/19 1:41PM by Edna Bagley RN, Office Visit; Not Available Not Available Not Available Accu-Chek Guide test strips USE 1 TWICE DAILY 2024 active Not Available Not Available Not Avai lable turmeric active Not Available Not Avai lable Not Available Accu-Chek Guide Me Glucose Meter USE DIRECTED TO CHECK BLOOD SUGAR TWICE DAILY active Not Available Not Available No t Available Vitals Date Recorded Body height Body mass index (BMI) Body weight Oxygen saturation Heart rate Systolic And Diastolic Provider Name and Address Organization Details Last Updated DateTime 157.48 cm 25.6 kg/m2 93204.9 3 g 93 % 63 /min 122/70 mm[Hg] YESSICA HOOD [facility] 15:57:09 Social History Question Answer Notes LastModified by Organizat ion Details LastModified Time Tobacco Smoking Status Never Smoker [facility] 02/14/2023 14:11:25 Are You Blind Or Do You Have Difficulty Seeing? No [email or web address] Information not available 02/14/2023 Are You Deaf Or Do You Have Serious Difficulty Hearing? No [email or web address] Information not available 02/14/2023 Have You Had Direct Contact, Or Contact During Intimacy, With Monkeypox Rash, Scabs, Or Body Fluids From A Person With Monkeypox? No [email or web address] Information not available 02/14/2023 What Was The Date Of Your Most Recent Tobacco Screening? 04/01/2025 [email or web address] Information not available 04/01/2025 Has Tobacco Cessation Counseling Been Provided? No [email or web address] Information not available 05/07/2023 Have You Recently Traveled Abroad? No [email or web address] Information not available 02/14/2023 Do You Have Difficulty Walking Or Climbing Stairs? No [email or web address] Information not available 02/14/2023 Sex: Unknown Functional Status Question Answer Note LastModified by Organizat ion Details LastModified Time Do you use any illicit or recreational drugs? No Information not available 12/21/2023 Do you or have you ever used any other forms of tobacco or nicotine? No [email or web address] Information not available 05/07/2023 What is your level of alcohol consumption? None Information not available 12/21/2023 Are you able to walk independently without assistance or assistive devices? [email or web address] Information not available 02/14/2023 Do you have difficulty doing errands alone? No [email or web address] Information not available 02/14/2023 Are you able to care for yourself independently? Yes [email or web address] Information not available 02/14/2023 Do you have difficulty dressing, bathing, grooming, or toileting? No [email or web address] Information not available 02/14/2023 Mental Status Question Answer Note LastModified by Organization D etails LastModified Time Do you have difficulty concentrating, remembering or making decisions? No [email or web address] Information no t available 02/14/2023 Family History Relationship Description Onset Age of this Age Resolved Age Notes LastModified by Organization Details LastModified Time Mother Essential hypertension [email or web address] Not available 16:56:30 Medical History Condition Response Coronary Artery Disease N Other N Gout N Kidney Stones N Blood Diseases N Hyperthyroidism N Breast Cancer N Blood Transfusion N Hypothyroidism N Depression N COPD N Lung Disease N Defects or Inherited Disease N Developmental or Behavioral Disorders N Breast Problem N Difficulty Swallowing N Anesthesia Complications N Anxiety Disorder N Meniere's disease N Muscle, Joint, or Bone Problems N Vision or Eye Problems N Arthritis N Polyps N Infertility N Cancer N Varicosities N Stroke N Endometriosis N Bladder or Kidney Problems N High Cholesterol N Liver Disease N Headaches N Fibromyalgia N Kidney Disease N Allergies/Hayfever N Heart Problems N Ear or Hearing Problems N Hospitalizations N Thyroid Problems N GI Problems N ADD/ADHD N Skin Problems N Eating Disorder N Anemia N Constipation N Mental Illness N Ovarian Cancer N Diabetes Y Bedwetting N Seizures/Epilepsy N Tuberculosis N Eczema N Diverticulitis N Abuse/Domestic Violence N Asthma N Reflux/GERD N Hepatitis N Heart Disease N Pulmonary Embolism N Chronic Ear Infections N Pre-Eclampsia N Hypertension N Chicken Pox N Autism Spectrum Disorder (ASD) N Osteoporosis N Thrombophilias N Gynecological HistoryNo gynecological history recorded. Obstetrics History GPAL:G 3 P 2 1 0 3 Type Value Full Term 2 Premature 1 Living 3 Total 3 Immunizations Vaccine Type Date Status Note Provider Nam e and Address Organization Details Recorded Time COVID-19, mRNA, LNP-S, PF, 100 mcg/0.5mL dose or 50 mcg/0.25mL dose 10/03/2021 completed YESSICA butler [facility] 10/06/2024 14:29:35 COVID-19, mRNA, LNP-S, PF, 100 mcg/0.5mL dose or 50 mcg/0.25mL dose 01/15/2021 completed YESSICA butler [facility] 10/06/2024 14:29:35 COVID-19, mRNA, LNP-S, PF, 100 mcg/0.5mL dose or 50 mcg/0.25mL dose 02/12/2021 completed YESSICA butler [facility] 10/06/2024 14:29:35 Past Encounters Encounter ID Performer Location Encounter Start Date Encounter Closed Date Diagnosis/Indication Diagnosis SNOMED-CT Code Diagnosis ICD10 Code Diagnosis IMO Codes Diagnosis Note [id number] Milton Pugh MD [facility] ([facility]) [address] [place] [address] 06/24/2025 15:27:21 06/24/2025 16:58:37 Osteoarthritis 242986670 M19.90 Acute urin ayla tract infection 953654340 N39.0 603680 Type 2 adriana betes mellitus 04048632 E11.9 56864064 Health Concerns Section Related Observation LastModified by Organization Detai ls LastModified Time None Recorded Concern Status LastModified by Organization Details LastModified Time None Recorded Payers Encounter Date Sequence Insurance Name Policy Number Policy Arzola Covered Member ID Arzola Member ID Guarantor Name 06/24/2025 2 () Alda Serrano [id number] Alda Serrano 06/24/2025 1 MEDICARE [place]: [place] Alda Serrano [id number] Alda Serrano Notes Date Note Type Note Provider Name and Address Organization Details Recorded Time 06/24/2025 text/html DiabetesReported by PatientHPIFor duration, patient reportschronic. For control, patient reportstreated with diet and oral medications (glipizide). For compliance, patient reportscompliant with medications,compliant with follow-up visits, andcompliant with diet. For self care, patient reportsmonitoring glucose daily. For associated symptoms, patient reportsno increased thirst,no increased appetite, andno increased urination. Lower Urinary Tract Symptoms (LUTS)Reported by PatientHPIFor associated symptoms, patient reportsurgency,frequen cy, andnocturia 1 times a night. For location, patient reportsbladder. For quality, patient reportspainless.UA was negative today. Hypertension IM/FMReported by PatientHPIFor quality, patient reportshere for check-up. For onset/timing, patient reportsgradual onset. For alleviating factors, patient reportsmedication. For associated symptoms, patient reportsno shortness of breath,no palpitations, andno chest pain. For risk factors, patient reportsdiabetes. Has been having increasing joint pain in her hands, left hand is the worse. Milton Pugh MD [address] [place] [address], [phone], [facility] 06/24/2025 16:58:16 OBGyn Episode No OBEpisode recorded.
--- OUTSIDE RECORDS SUMMARY | 2025-08-02 22:29 | XMS_ITS | Continuity of Care Document ---
Author Organization ARIANNE - Lamonte Alcocer [facility], [facility], [facility] ([facility]) Address [address] [place] [address] Care Team Providers Care Scuba Dive Training Instructor Name Role Phone BONIFACIO SMITH Primary Care Provider Unavailabl e Assessment No assessment recorded. Plan of Treatment Reminders Order Date Submit Date Provider Last Modified By Organization Details Last Modified Time Details Appointments None recorded. Lab urinalysis , complete 2024 025 [facility], [address], [address], [place], [address], 16:20:38 culture, urine 2024 025 [employer] [facility], [address] [place] [address] 248, [facility] [address] [place], [address], 05:49:39 Referral None recorded. Procedures None recorded. Surgeries None recorded. Imaging None recorded. Medication Orders Cipro 500 mg tablet 2024 025 [facility], [address], [place], [address], 05:01:37 Patient TargetsNo targets recorded. Patient InstructionsNo instructions recorded. Reason for Referral None Reported. Results Created Date Observation Date Name Description Value Unit Range Abnormal Flag Note LastModifiedBy Organization Detail LastModifiedTime 05/06/2005/06/2025 URINA LYSIS WITH MICRO color DARK YELLOW Not Available [facility] [address], [place], [address], 05/06/2025 16:20:38 05/06/20 25 05/06/2025 URINA LYSIS WITH MICRO clarity CLOUDY Not Available [facility] [address], [place], [address], 05/06/2025 16:20:38 05/06/20 25 05/06/2025 URINA LYSIS WITH MICRO glu NEGATI VE Not Available [facility] [address], [place], [address], 05/06/2025 16:20:38 05/06/20 25 05/06/2025 URINA LYSIS WITH MICRO bili NEGATI VE Not Available [facility] [address], [place], [address], 05/06/2025 16:20:38 05/06/20 25 05/06/2025 URINA LYSIS WITH MICRO ket NEGATI VE Not Available [facility] [address], [place], [address], 05/06/2025 16:20:38 05/06/20 25 05/06/2025 URINA LYSIS WITH MICRO S.g 1.020 Not Available [facility] [address], [place], [address], 05/06/2025 16:20:38 05/06/20 25 05/06/2025 URINA LYSIS WITH MICRO pH 6.5 Not Available [facility] [address], [place], [address], 05/06/2025 16:20:38 05/06/20 25 05/06/2025 URINA LYSIS WITH MICRO pro NEGATI VE Not Available [facility] [address], [place], [address], 05/06/2025 16:20:38 05/06/20 25 05/06/2025 URINA LYSIS WITH MICRO uro 1.0 E.U./D L Not Available [facility] [address] [facility] [place], [address], 05/06/2025 16:20:38 05/06/20 25 05/06/2025 URINA LYSIS WITH MICRO nit NEGATI VE Not Available [facility] [address] [facility] [address], [place], [address], 05/06/2025 16:20:38 05/06/20 25 05/06/2025 URINA LYSIS WITH MICRO blo 3+ abnormal Not Available [facility] [address] [facility] [address], [place], [address], 05/06/2025 16:20:38 05/06/20 25 05/06/2025 URINA LYSIS WITH MICRO neva 3+ abnormal Not Available [facility] [address] [facility] [address], [place], [address], 05/06/2025 16:20:38 05/06/20 25 05/06/2025 URINA LYSIS WITH MICRO WBC 40-50 abnormal Not Available [facility] [address] [facility] [address], [place], [address], 05/06/2025 16:20:38 05/06/20 25 05/06/2025 URINA LYSIS WITH MICRO RBC 25-30 abnormal Not Available [facility] [address] [facility] [address], [place], [address], 05/06/2025 16:20:38 05/06/20 25 05/06/2025 URINA LYSIS WITH MICRO epi cells 6-8 Not Available [facility] [address] [facility] [address], [place], [address], 05/06/2025 16:20:38 05/06/20 25 05/06/2025 URINA LYSIS WITH MICRO bacteria NEGATI VE Not Available [facility] [address], [place], [address], 05/06/2025 16:20:38 05/06/20 25 05/06/2025 URINA LYSIS WITH MICRO other NG Not Available [facility] [address], [place], [address], 05/06/2025 16:20:38 05/06/20 25 05/09/2025 CULTU RE, URINE , ROUTI NE culture, urine, routine SEE NOTE abnormal CULTU RE, URINE , ROUTI NE Micro Numbe r: [id number] Test Statu s: Final Speci men Sourc e: Urine Speci men Quali ty: Adequ ate Resul t: 10,00 0-49, 000 CFU/m L of Esche marcelo a coli E.col i ----- ----- ----- - INT JASON AMOX/ CLAVU LANAT E S 8 AMP/S ULBAC JOYNER I 16 CEFAZ KEHINDE R 8 1 CEFEP FABRICIO S <=0.1 2 CEFTA ZIDIM E S <=0.5 CEFTR IAXON E S <=0.2 5 CIPRO FLOXA SMOOTH S <=0.0 6 GENTA MICIN R >=16 IMIPE NEM S <=0.2 5 LEVOF LOXAC IN S <=0.1 2 MEROP ENEM S <=0.2 5 NITRO FURAN TOIN S <=16 PIP/T AZOBA CTAM S <=4 TRIME THOPR IM/CUMMINGS LFA R >=320 S = Susce ptibl e I = Inter media te R = Resis tant NS = Not susce ptibl e SDD = Susce ptibl e Dose Depen dent * = Not Teste d NR = Not Repor blair NN = See Thera py Comme nts THERA PY COMME NTS Note 1: For uncom plica blair UTI cause d by E. coli, K. pneum oniae or P. mirab ilis: Cefaz kehinde is susce ptibl e if JASON <32 mcg/m L and predi cts susce ptibl e to the oral agent s cefac malik, cefdi jerry, cefpo doxim e, cefpr ozil, cefur oxime , cepha lexin and lorac arbef . Not Available [facility] [address] [place], [address], 05/09/2025 05:49:39 Result Notes None recorded. Problems Name Problem SNOMED Code Status Onset Date Resolution Date Notes Provider Name and Address Organization Details Recorded Time Hypertens celestina disorder 14754335 Active 2022 HYPERTENS ION, ESSENTIAL ; Recorded 3 1:40PM by Patria Bagley RN, Office Visit; Promoted; acuity set as *; JAS butler [facility] 5 16:50:25 Cirrhosis of liver 66875542 Active 2022 CIRRHOSIS , NONALCOHO LIC; Recorded 3 1:40PM by Patria Bagley RN, Office Visit; Promoted; acuity set as *; ESOPHAGE AL VARICES IN CIRRHOSIS ; Recorded 3 3:34PM by Ivy Ball PA-C, Luz n/Echo m; Promoted; acuity set as *; ; Start Date : 3 CIRRHOS IS, NONALCOHO LIC; Recorded 3 3:34PM by Ivy Ball PA-C, Luz broderick/Echo m; Promoted; acuity set as *; ; Start Date : [address] [facility] 5 16:50:25 History of disorder of digestive system 034922175 Active 2022 HISTORY OF ESOPHAGEA L VARICES; Story: seen on EGD Grade 1 no bleeding Laughlin 08/29; Recorded 3 1:40PM by Patria Bagley RN, Office Visit; Promoted; acuity set as *; JAS butler [facility], [place] 5 16:50:25 Pancytope alexandru 133233610 Active 2022 PANCYTOPE ALEXANDRU; Recorded 3 1:40PM by Patria Bagley, RN, Office Visit; Promoted; acuity set as *; PANCYTOP ENIA; Recorded 3 3:35PM by Ivy Ball PA-C, Annotatio n/Addendu m; Promoted; acuity set as *; ; Start Date : 3 Milton Pugh MD [address] [place] [address], [phone] , [facility], AmintaCCharles 5 17:32:51 Type 2 diabetes mellitus without complicat ion 070918915 Active 2022 DIABETES TYPE 2, CONTROLLE D; Recorded 3 1:40PM by Patria Bagley RN, Office Visit; Promoted; acuity set as *; CONTROLL ED TYPE 2 DIABETES MELLITUS, WITHOUT LONG-TERM CURRENT USE OF INSULIN; Recorded 3 3:34PM by Ivy Ball PA-C, Annotatio n/Addendu m; Promoted; acuity set as *; ; Start Date : 3 JAS butler, [facility] 5 16:50:25 Osteoarth ritis 694054111 Active 2024 JAS butler, [facility] 5 16:50:25 Pain of bilateral knee joints 152584263860 104 Active [address] [facility] 5 16:50:25 Gastroeso phageal reflux disease 823657869 Active [address] [facility] 5 16:50:25 Dysuria 18607427 Active 2024 Milton Pugh MD [address] [place] [address], [phone], [facility], L.L.CCharles 17:24:29 Well controlle d type 2 diabetes mellitus 930872933 Active 2024 Milton Pugh MD [address] [place] [address], [phone], [facility], L.L.CCharles 17:33:24 Multiple actinic keratoses 902245210 Active 2024 Milton Pugh MD [address] [place] [address], [address], [facility], [facility].L.CCharles 17:33:42 Essential hypertens ion 43001571 Active 2024 Milton Pugh MD [address] [place] [address], [address], [facility], [facility].L.CCharles 17:37:01 Acute urinary tract infection 656942624 Active 2024 Milton Pugh MD [address] [place] [address], [address], [facility], Susannah.L.CCharles 17:41:38 Type 2 diabetes mellitus 01822104 Active 2024 Milton Pugh MD [address] [place] [address], [address], [facility], L.L.CCharles 16:51:08 Problem Notes None recorded. Procedures Surgical History Date Name Laterality Status Provider Name and Address Organization Details Recorded Time 04/01/20 25 Cryo Lesion-#1 completed Milton Pugh MD [address] [place] [address], [phone], [facility], L.LCharlesCCharles 04/01/2025 17:34:47 Caesarean Section completed [facility], EvonneLShannon 12/21/2023 14:51:26 Total Hysterectomy completed [facility], [place] 12/21/2023 14:51:34 procedure on urinary bladder completed [facility], [place] 12/21/2023 14:51:53 LASIK completed [facility], [place] 12/21/2023 14:52:08 Imaging Results None recorded. Procedure Notes None recorded. Medical Equipment None Reported. Allergies Allergen ID Allergen Name Allergen Category Reaction Reaction Severity Criticality Documentation Date Start Date Code Code System Note Provider Name and Address Organization Details Recorded Time 44533 Shellfish (substanc e) food,medi cation abdominal pain vomiting moderate mild low 04/07/2023 96107 9006 SNOMED React ion: Abdom inal pain, Nause a [facility], [place] 14:49:58 Medications Name Sig Start Date Stop Date Status Note LastModified by Organization Details LastModified Time roscoe dexa,diph ,nystat,t etra 0.5/12.5/ 192990/3g ga SWISH AND EXPECTOR ATE A SMALL [...] lorothiaz jamal every morning 05/07 completed cs/smf; 83583; Recorded 10/27/19 7:52AM by Twyla Marie (Authori [...] for cough; Recorded 09/25/19 1:58PM by Bonifacio Smith DO, Office Visit; Refill Quantity : 0; [...] compatib le with machine VO CS/smf E11.65; 93301; Recorded 09/25/19 1:41PM by Edna Bagley RN (Authori zed through WENDY Rao, Office Visit; Refill Quantity : 0; Not [...] height Body mass index (BMI) Body weight Body temperature Oxygen saturation Heart rate Systolic And Diastolic Provider Name and Address Organization Details Last Updated DateTime 157.48 cm 25.6 kg/m2 95275.9 3 g 97.5 [degF] 93 % 76 /min 160/70 mm[Hg] SKYLA BLAKE [facility] 15:55:44 Social History Question Answer Notes LastModified by Organizat ion Details LastModified Time Tobacco Smoking Status [facility] 02/14/2023 14:11:25 Are You Blind Or Do You Have Difficulty Seeing? No [email or web address] Information not available 02/14/2023 Are You Deaf Or Do You Have Serious Difficulty Hearing? No [email or web address] Information not available 02/14/2023 Have You Had Direct Contact, Or Contact During Intimacy, With Monkeypox Rash, Scabs, Or Body Fluids From A Person With Monkeypox? No [email or web address] Information not available 02/14/2023 What Was The Date Of Your Most Recent Tobacco Screening? 04/01/2025 [email or web address] Information not available 04/01/2025 Has Tobacco Cessation Counseling Been Provided? No Information not available 05/07/2023 Have You Recently Traveled Abroad? No [email or web address] Information not available 02/14/2023 Do You Have Difficulty Walking Or Climbing Stairs? No [email or web address] Information not available 02/14/2023 Sex: Unknown Functional Status Question Answer Note LastModified by Organizat ion Details LastModified Time Do you use any illicit or recreational drugs? No Information not available 12/21/2023 Do you or have you ever used any other forms of tobacco or nicotine? No [email or web address] Information not available 05/07/2023 What is your level of alcohol consumption? None Information not available 12/21/2023 Are you able to walk independently without assistance or assistive devices? YESWOREST [email or web address] Information not available 02/14/2023 Do you have difficulty doing errands alone? No Information not available 02/14/2023 Are you able to care for yourself independently? Yes [email or web address] Information not available 02/14/2023 Do you have difficulty dressing, bathing, grooming, or toileting? No [email or web address] Information not available 02/14/2023 Mental Status Question Answer Note LastModified by Organization D etails LastModified Time Do you have difficulty concentrating, remembering or making decisions? No [email or web address] Information no t available 02/14/2023 Family History Relationship Description Onset Age of this Age Resolved Age Notes LastModified by Organization Details LastModified Time Mother Essential hypertension [email or web address] Not available 16:56:30 Medical History Condition Response Coronary Artery Disease N Other N Gout N Kidney Stones N Blood Diseases N Hyperthyroidism N Breast Cancer N Blood Transfusion N Depression N COPD N Lung Disease N Hypothyroidism N Developmental or Behavioral Disorders N Defects or Inherited Disease N Breast Problem N Difficulty Swallowing N Anesthesia Complications N Meniere's disease N Anxiety Disorder N Muscle, Joint, or Bone Problems N [...] N Heart Disease N Pulmonary Embolism N Pre-Eclampsia N Hypertension N Chronic Ear Infections N Osteoporosis N Chicken Pox N Autism Spectrum Disorder (ASD) N Thrombophilias N Gynecological HistoryNo gynecological history recorded. Obstetrics History GPAL:G 3 P 2 1 0 3 Type Value Full Term 2 Premature 1 Living 3 Total 3 Immunizations Vaccine Type Date Status Note Provider Nam e and Address Organization Details Recorded Time COVID-19, mRNA, LNP-S, PF, 100 mcg/0.5mL dose or 50 mcg/0.25mL dose 10/03/2021 [facility] 10/06/2024 14:29:35 COVID-19, mRNA, LNP-S, PF, 100 mcg/0.5mL dose or 50 mcg/0.25mL dose 01/15/[address] [facility] 10/06/2024 14:29:35 COVID-19, mRNA, LNP-S, PF, 100 mcg/0.5mL dose or 50 mcg/0.25mL dose 02/12/[address] [facility] 10/06/2024 14:29:35 Past Encounters Encounter ID Performer Location Encounter Start Date Encounter Closed Date Diagnosis/Indication Diagnosis SNOMED-CT Code Diagnosis ICD10 Code Diagnosis IMO Codes Diagnosis Note [id number] Yaneth Zaman MD [facility] ([facility]) [address] [place] [address] 05/06/2025 15:29:25 05/13/2025 07:22:19 Dysuria 05639477 R30.0 38627 Acute cystitis 72274180 N30.00 1406140 Health Concerns Section Related Observation LastModified by Organization Detai ls LastModified Time None Recorded Concern Status LastModified by Organization Details LastModified Time None Recorded Payers Encounter Date Sequence Insurance Name Policy Number Policy Arzola Covered Member ID Arzola Member ID Guarantor Name 05/06/2025 2 () Alda Serrano [id number] Alda Serrano 05/06/2025 1 MEDICARE [place] Alda Serrano [id number] Alda Serrano Notes Date Note Type Note Provider Name and Address Organization Details Recorded Time 05/06/2025 text/html Lower Urinary Tr act Symptoms (LUTS)Reported by PatientHPIFor associated symptoms, patient reportsflank pain,low back pain,chills,weak force of stream,straining, andurgency. For severity, patient reportsnot changing. For onset/timing, patient reportsconstant.ROS as noted in the HPI Yaneth Zaman MD [address] [place] [address], [phone], [facility], [place] 05/12/2025 15:34:09 OBGyn Episode No OBEpisode recorded.
--- OUTSIDE RECORDS SUMMARY | 2025-08-02 22:29 | XMS_ITS | Data Portability ---
Author Organization [facility]AN[facility], [facility]CARYN [facility] Address [address] [place] [address] Care Team Providers Care Environmental Sampler Name Role Phone BONIFACIO SMITH Primary Care Provider Unavailabl e Assessment Encounter Date Assessment Date Assessment LastModified by Organization Details LastModified Time 04/01/2025 04/01/2025 Patient presents with symptoms of UTI. Results of dipstick were positive for UTI. Advised to drink clear fluids, Tylenol for pain and take prescribed medications as instructed. Patient encouraged to follow up within 1 week if not improving. Not available 04/01/2025 17:41:48 06/24/2025 06/24/2025 Patient presents with symptoms of UTI. Results of dipstick were negative for UTI. Advised to drink clear fluids, Tylenol for pain and take prescribed medications as instructed. Patient encouraged to follow up within 1 week if not improving. [email or web address] Not available 06/24/2025 16:50:34 Plan of Treatment Reminders Order Date Submit Date Provider Last Modified By Organization Details Last Modified Time Details Appointments None recorded. Lab ESR (erythrocyt e sedimentati on rate), blood 2024 025 [facility] ([facility] [address] [place], [address], 09:02:20 urinalysis, complete 2024 025 [facility], [address] [address], [place], [address], 16:38:25 culture, urine 2024 [facility], [address] [place] [address] 248, [address], [place], [address], 01:41:58 hemoglobin A1C/hemoglo bin total, QN, blood 2024 [facility], [address], [address], [place], [address], 17:25:55 urinalysis, complete 2024 025 [facility], [address], [address], [place], [address], 16:20:38 culture, urine 2024 [facility], [address] [place] [address] 248, [address], [place], [address], 05:49:39 urinalysis, complete [email or web address] [place] [address] Lab, [address], [address], [place], [address], 10:26:29 culture, urine 2024 [facility], [address] [place] [address] 248, [address], [place], [address], 01:23:14 Referral None recorded. Procedures None recorded. Surgeries cryotherapy (SURG) 2024 025 [email or web address] Not available 10:53:56 Imaging None recorded. Medication Orders Cipro 500 mg tablet 2024 025 [facility] 15, [address], [place], [address], 5 05:01:37 nitrofurant oin monohydrate /macrocryst als 100 mg capsule 2024 025 [facility] 15, [address], [place], [address], 5 05:02:12 bisoprolol 2.5 mg-hydrochl orothiazide 6.25 mg tablet 2024 025 [facility] 15, [address], [place], [address], 5 17:42:17 ondansetron 4 mg disintegrat ing tablet 2024 025 [facility] 15, [address] [address], [place], [address], 5 15:25:26 diclofenac 3 % topical gel 2024 025 [facility] 15, [address] [address], [place], [address], 5 15:25:23 omeprazole 20 mg capsule,del ayed release 2024 025 [facility] 15, [address] [address], [place], [address], 5 15:25:24 glipizide ER 5 mg tablet, extended release 24 hr 2024 025 [facility] 15, [address] [address], [place], [address], 5 15:25:23 magnesium oxide 400 mg (241.3 mg magnesium) tablet 2023 025 [facility] 15, [address], [place], [address], 14:33:16 glipizide ER 5 mg tablet, extended release 24 hr 2023 024 [facility], [address], [place], [address], 14:38:32 Patient TargetsNo targets recorded. Patient Instructions Encounter Date Encounter Id Patient Instructions Last Modified By Organization Details Last Modified Time 04/07/2024 [id number] a1c better, but still not at goal; couldn't tolerate metformin or jardiance; discussed glp-1, but daughter had issues and she wants to avoid will try low dose glipizide swelling better melatonin not working; discussed good sleep hygiene consider trazodone, but she is reluctant [email or web address] Not available 04/07/2024 14:38:09 Reason for Referral None Reported. Results Created Date Observation Date Name Description Value Unit Range Abnormal Flag Note LastModifiedBy Organization Detail LastModifiedTime 03/31/20 24 03/31/2024 BMP (FEMA LE) glucose 188.0 mg/dL 60.0-9 9.0 high Not Available [facility] [address] [facility], [place], [address], 04/01/2024 09:04:15 03/31/20 24 03/31/2024 BMP (FEMA LE) BUN (blood urea nitrogen) 13.0 mg/dL 10.0-2 6.0 Not Available [facility] [address], [place], [address], 04/01/2024 09:04:15 03/31/20 24 03/31/2024 BMP (FEMA LE) creatinine (serum) 0.5 mg/dL 0.4-1. 5 Not Available [facility] [address] [facility] [address], [place], [address], 04/01/2024 09:04:15 03/31/20 24 03/31/2024 BMP (FEMA LE) BUN/creatini ne ratio 25.49 ratio Not Available [facility] [address] [facility] 1, [place], [address], 04/01/2024 09:04:15 03/31/20 24 03/31/2024 BMP (FEMA LE) calcium 8.7 mg/dL 8.4-10 .5 Not Available [facility] [address] [facility] 1, [place], [address], 04/01/2024 09:04:15 03/31/20 24 03/31/2024 BMP (FEMA LE) sodium 139.0 mmol/ L 136.0- 145.0 Not Available [facility] [address] [facility] 1, [place], [address], 04/01/2024 09:04:15 03/31/20 24 03/31/2024 BMP (FEMA LE) potassium 3.9 mmol/ L 3.5-5. 1 Not Available [facility] [address] [facility] 1, [place], [address], 04/01/2024 09:04:15 03/31/20 24 03/31/2024 BMP (FEMA LE) chloride 109.0 mmol/ L 98.0-1 10.0 normal Not Available [facility] [address] [facility] 1, [place], [address], 04/01/2024 09:04:15 03/31/20 24 03/31/2024 BMP (FEMA LE) C02 27.0 mmol/ L 22.0-3 1.0 Not Available [facility] [address] [facility] 1, [place], [address], 04/01/2024 09:04:15 03/31/20 24 03/31/2024 BMP (FEMA LE) anion gap 3.0 calc Not Available [facility] [address] [facility] 1, [place], [address], 04/01/2024 09:04:15 03/31/20 24 03/31/2024 HbA1c (hemo globi n A1c), blood HbA1c 8.4 Not Available [facility]) [address] [place], [address], 03/31/2024 10:04:57 04/01/20 25 04/01/2025 URINA LYSIS WITH MICRO color YELLOW Not Available [facility] [address] [facility] 1, [place], [address], 04/01/2025 17:41:34 04/01/20 25 04/01/2025 URINA LYSIS WITH MICRO clarity CLEAR Not Available [facility] [address] [facility] 1, [place], [address], 04/01/2025 17:41:34 04/01/20 25 04/01/2025 URINA LYSIS WITH MICRO glu 3+ abnormal Not Available [facility] [address] [facility], [place], [address], 04/01/2025 17:41:34 04/01/20 25 04/01/2025 URINA LYSIS WITH MICRO bili NEGATI VE Not Available [facility] [address] [facility] 1, [place], [address], 04/01/2025 17:41:34 04/01/20 25 04/01/2025 URINA LYSIS WITH MICRO ket NEGATI VE Not Available [facility] [address] [facility] 1, [place], [address], 04/01/2025 17:41:34 04/01/20 25 04/01/2025 URINA LYSIS WITH MICRO S.g 1.015 1.005- 1.025 Not Available [facility] [address], [place], [address], 04/01/2025 17:41:34 04/01/20 25 04/01/2025 URINA LYSIS WITH MICRO pH 6.0 5.0-7. 0 Not Available [facility] [address] [facility] [place], [address], 04/01/2025 17:41:34 04/01/20 25 04/01/2025 URINA LYSIS WITH MICRO pro NEGATI VE Not Available [facility] [address], [place], [address], 04/01/2025 17:41:34 04/01/20 25 04/01/2025 URINA LYSIS WITH MICRO uro 4.0 E.U./D L Not Available [facility] [address] [facility], [place], [address], 04/01/2025 17:41:34 04/01/20 25 04/01/2025 URINA LYSIS WITH MICRO nit POSITI VE abnormal Not Available [facility] [address] [facility] 1, [place], [address], 04/01/2025 17:41:34 04/01/20 25 04/01/2025 URINA LYSIS WITH MICRO blo TRACE- INTACT abnormal Not Available [facility] [address] [facility], [place], [address], 04/01/2025 17:41:34 04/01/20 25 04/01/2025 URINA LYSIS WITH MICRO neva 1+ abnormal Not Available [facility] [address] [facility] 1, [place], [address], 04/01/2025 17:41:34 04/01/20 25 04/01/2025 URINA LYSIS WITH MICRO WBC 50-60 abnormal Not Available [facility] [address] [facility] 1, [place], [address], 04/01/2025 17:41:34 04/01/20 25 04/01/2025 URINA LYSIS WITH MICRO RBC 2-4 Not Available [facility] [address] [facility], [place], [address], 04/01/2025 17:41:34 04/01/20 25 04/01/2025 URINA LYSIS WITH MICRO epi cells 8-10 abnormal Not Available [facility] [address] [facility] 1, [place], [address], 04/01/2025 17:41:34 04/01/20 25 04/01/2025 URINA LYSIS WITH MICRO bacteria 1+ MIXED PARVEZ abnormal Not Available [facility] [address] [facility] 1, [place], [address], 04/01/2025 17:41:34 04/01/20 25 04/01/2025 URINA LYSIS WITH MICRO other NG Not Available [facility] [address] [facility] 1, [place], [address], 04/01/2025 17:41:34 04/01/20 25 04/05/2025 CULTU RE, URINE , ROUTI NE culture, urine, routine SEE NOTE abnormal CULTU RE, URINE , ROUTI NE Micro Numbe r: [id number] Test Statu s: Final Speci men Sourc e: Urine , clean catch Speci men Quali ty: Adequ ate Resul t: 50,00 0-100 ,000 CFU/m L of Esche marcelo a coli E.col i ----- ----- ----- - INT JASON AMOX/ CLAVU LANAT E S 8 AMP/S ULBAC JOYNER I 16 CEFAZ KEHINDE I 4 CEFEP FABRICIO S <=0.1 2 CEFTA ZIDIM [...] NN = See Thera py Comme nts Not Available [facility] [address] [place], [address], 04/05/2025 01:23:13 05/06/20 25 05/06/2025 URINA LYSIS WITH MICRO color DARK YELLOW Not Available [facility] [address], [address], 05/06/2025 16:20:38 05/06/20 25 05/06/2025 URINA LYSIS WITH MICRO clarity CLOUDY Not Available [facility] [address], [address], 05/06/2025 16:20:38 05/06/20 25 05/06/2025 URINA LYSIS WITH MICRO glu NEGATI VE Not Available [facility] [address] [facility] [address], [address], 05/06/2025 16:20:38 05/06/20 25 05/06/2025 URINA LYSIS WITH MICRO bili NEGATI VE Not Available [facility] [address] [facility] 1[place], [address], 05/06/2025 16:20:38 05/06/20 25 05/06/2025 URINA LYSIS WITH MICRO ket NEGATI VE Not Available [facility] [address] [facility] [address], [address], 05/06/2025 16:20:38 05/06/20 25 05/06/2025 URINA LYSIS WITH MICRO S.g 1.020 Not Available [facility] [address], [place], [address], 05/06/2025 16:20:38 05/06/20 25 05/06/2025 URINA LYSIS WITH MICRO pH 6.5 Not Available [facility] [address], [place], [address], 05/06/2025 16:20:38 05/06/20 25 05/06/2025 URINA LYSIS WITH MICRO pro NEGATI VE Not Available [facility] [address] [facility] 1, [place], [address], 05/06/2025 16:20:38 05/06/20 25 05/06/2025 URINA LYSIS WITH MICRO uro 1.0 E.U./D L Not Available [facility] [address] [facility] [address], [place], [address], 05/06/2025 16:20:38 05/06/20 25 05/06/2025 URINA LYSIS WITH MICRO nit NEGATI VE Not Available [facility] [address] [facility] 1, [place], [address], 05/06/2025 16:20:38 05/06/20 25 05/06/2025 URINA LYSIS WITH MICRO blo 3+ abnormal Not Available [facility] [address], [place], [address], 05/06/2025 16:20:38 05/06/20 25 05/06/2025 URINA LYSIS WITH MICRO neva 3+ abnormal Not Available [facility] [address] [facility], [place], [address], 05/06/2025 16:20:38 05/06/20 25 05/06/2025 URINA LYSIS WITH MICRO WBC 40-50 abnormal Not Available [facility] [address] [facility] 1, [place], [address], 05/06/2025 16:20:38 05/06/20 25 05/06/2025 URINA LYSIS WITH MICRO RBC 25-30 abnormal Not Available [facility] [address] [facility] 1, [place], [address], 05/06/2025 16:20:38 05/06/20 25 05/06/2025 URINA LYSIS WITH MICRO epi cells 6-8 Not Available [facility] [address] [facility] 1, [place], [address], 05/06/2025 16:20:38 05/06/20 25 05/06/2025 URINA LYSIS WITH MICRO bacteria NEGATI VE Not Available [facility] [address] [facility] 1, [place], [address], 05/06/2025 16:20:38 05/06/20 25 05/06/2025 URINA LYSIS WITH MICRO other NG Not Available [facility] [address] [facility] 1, [place], [address], 05/06/2025 16:20:38 05/06/20 25 05/09/2025 CULTU RE, URINE , ROUTI NE culture, urine, routine SEE NOTE abnormal CULTU RE, URINE , ROUTI NE Micro Numbe r: [id number] Test Statu s: Final Speci men [...] lexin and lorac arbef . Not Available [facility] [address] [place], [address], 05/09/2025 05:49:39 06/24/2006/24/2025 URINA LYSIS WITH MICRO color YELLOW Not Available [facility] [address], [address], 06/24/2025 16:38:24 06/24/20 25 06/24/2025 URINA LYSIS WITH MICRO clarity CLEAR Not Available [facility] 8[address] [facility] 1, [place], [address], 06/24/2025 16:38:24 06/24/20 25 06/24/2025 URINA LYSIS WITH MICRO glu NEGATI VE Not Available [facility] [address] [facility] 1, [place], [address], 06/24/2025 16:38:24 06/24/20 25 06/24/2025 URINA LYSIS WITH MICRO bili NEGATI VE Not Available [facility] [address], [place], [address], 06/24/2025 16:38:24 06/24/20 25 06/24/2025 URINA LYSIS WITH MICRO ket NEGATI VE Not Available [facility] [address], [place], [address], 06/24/2025 16:38:24 06/24/20 25 06/24/2025 URINA LYSIS WITH MICRO S.g 1.010 1.005- 1.025 Not Available [facility] [address], [place], [address], 06/24/2025 16:38:24 06/24/20 25 06/24/2025 URINA LYSIS WITH MICRO pH 6.0 5.0-7. 0 Not Available [facility] [address], [place], [address], 06/24/2025 16:38:24 06/24/20 25 06/24/2025 URINA LYSIS WITH MICRO pro NEGATI VE Not Available [facility] [address], [place], [address], 06/24/2025 16:38:24 06/24/20 25 06/24/2025 URINA LYSIS WITH MICRO uro 2.0 E.U./D L Not Available [facility] [address], [place], [address], 06/24/2025 16:38:24 06/24/20 25 06/24/2025 URINA LYSIS WITH MICRO nit NEGATI VE Not Available [facility] [address], [place], [address], 06/24/2025 16:38:24 06/24/2006/24/2025 URINA LYSIS WITH MICRO blo NEGATI VE Not Available [facility] [address], [place], [address], 06/24/2025 16:38:24 06/24/2006/24/2025 URINA LYSIS WITH MICRO neva NEGATI VE Not Available [facility] [address], [place], [address], 06/24/2025 16:38:24 06/24/2006/24/2025 URINA LYSIS WITH MICRO WBC 2-3 Not Available [facility] [address], [place], [address], 06/24/2025 16:38:24 06/24/2006/24/2025 URINA LYSIS WITH MICRO RBC 0-1 Not Available [facility] [address], [place], [address], 06/24/2025 16:38:24 06/24/2006/24/2025 URINA LYSIS WITH MICRO epi cells 6-8 Not Available [facility] [address], [place], [address], 06/24/2025 16:38:24 06/24/2006/24/2025 URINA LYSIS WITH MICRO bacteria NEGATI VE Not Available [facility] [address], [place], [address], 06/24/2025 16:38:24 06/24/2006/24/2025 URINA LYSIS WITH MICRO other NG Not Available [facility] [address], [place], [address], 06/24/2025 16:38:24 06/24/20 25 06/24/2025 HBA1C hemaglobin A1C 6.0 4.2-6. 5 Not Available [facility] [address], [address], 06/24/2025 17:25:55 06/24/20 25 06/26/2025 CULTU RE, URINE , ROUTI NE culture, urine, routine SEE NOTE CULTU RE, URINE , ROUTI NE Micro Numbe r: [id number] Test Statu s: Final Speci men Sourc e: Urine Speci men Quali ty: Adequ ate Resul t: No Growt h Not Available [facility] [address] [place], [address], 06/26/2025 01:41:58 06/24/20 25 06/24/2025 ESR (eryt hrocy te sedim entat ion rate) , blood SedRate 30 Not Available [facility] ([facility]) [address] [place], [address], 06/24/2025 16:52:29 Result Notes None recorded. Problems Name Problem SNOMED Code Status Onset Date Resolution Date Notes Provider Name and Address Organization Details Recorded Time Hypertens celestina disorder 97876148 Active 2022 HYPERTENS ION, ESSENTIAL ; Recorded 3 1:40PM by Patria Bagley RN, Office Visit; Promoted; acuity set as *; JAS butler [facility], L.LCharlesCCharles 5 16:50:25 Cirrhosis of liver 84127306 Active 2022 CIRRHOSIS , NONALCOHO LIC; Recorded 3 1:40PM by Patria Bagley RN, Office Visit; Promoted; acuity set as *; ESOPHAGE AL VARICES IN CIRRHOSIS ; Recorded 3 3:34PM by Ivy Ball PA-C, Annotatio n/Echo ramirez; Promoted; acuity set as *; ; Start Date : 3 CIRRHOS IS, NONALCOHO LIC; Recorded 3 3:34PM by Ivy Ball PA-C, Luz n/Sagrarioendu m; Promoted; acuity set as *; ; Start Date : 3 JAS butler, [facility], L.L.CCharles 5 16:50:25 History of disorder of digestive system 893409783 Active 2022 HISTORY OF ESOPHAGEA L VARICES; Story: seen on EGD Grade 1 no bleeding [place]aughlin 08/29; Recorded 3 1:40PM by Patria Bagley, RN, Office Visit; Promoted; acuity set as *; JAS butler, [facility], L.LCharlesCCharles 5 16:50:25 Pancytope alexandru 352275583 Active 2022 PANCYTOPE ALEXANDRU; Recorded 3 1:40PM by Patria Bagley, RN, Office Visit; Promoted; acuity set as *; PANCYTOP ENIA; Recorded 3 3:35PM by Ivy Ball PA-C, Luz n/Echo m; Promoted; acuity set as *; ; Start Date : 3 Milton Pugh MD [address] [place] [address], [address] , [facility], L.L.CCharles 5 17:32:51 Type 2 diabetes mellitus without complicat ion 749802616 Active 2022 DIABETES TYPE 2, CONTROLLE D; Recorded 3 1:40PM by Patria Bagley, RN, Office Visit; Promoted; acuity set as *; CONTROLL ED TYPE 2 DIABETES MELLITUS, WITHOUT LONG-TERM CURRENT USE OF INSULIN; Recorded 3 3:34PM by Ivy Ball PA-C, Latashaatikonrad n/Addendu m; Promoted; acuity set as *; ; Start Date : 3 JAS butler [facility], L.LCharlesCCharles 5 16:50:25 Osteoarth ritis 199463699 Active 2024 JAS GIVENSPAMELA butler, [facility], L.L.C. 16:50:25 Pain of bilateral knee joints 313532406648 104 Active 2024 JAS GIVENSPAMELA carrie, [facility], L.L.C. 16:50:25 Gastroeso phageal reflux disease 024788855 Active 2024 JAS butler, [facility], L.L.C. 16:50:25 Dysuria 15339064 Active 2024 Milton Pugh MD [address] [place] [address], [address] , [facility], L[facility]C. 17:24:29 Well controlle d type 2 diabetes mellitus 343778811 Active 2024 Milton Pugh MD [address] [place] [address], [address] , [facility], L[facility]L.C. 17:33:24 Multiple actinic keratoses 022995132 Active 2024 Milton Pugh MD [address] [place] [address], [address] , [facility], L.L.C. 17:33:42 Essential hypertens ion 23341510 Active 2024 Milton Pugh MD [address] [place] [address], [address] , [facility] L[facility]C. 17:37:01 Acute urinary tract infection 567159062 Active 2024 Milton Pugh MD [address] [place] [address], [address] , [facility] L[facility]C. 17:41:38 Type 2 diabetes mellitus 46711600 Active 2024 Milton Pugh MD [address] [place], [address], [facility], L.LCharlesCCharles 16:51:08 Problem Notes None recorded. Procedures Surgical History Date Name Laterality Status Provider Name and Address Organization Details Recorded Time 04/01/20 25 Cryo Lesion-#1 completed Milton Pugh MD [address] [place], [address], [facility], L.LCharlesCCharles 04/01/2025 17:34:47 Caesarean Section completed [facility], L.L.CCharles 12/21/2023 14:51:26 Total Hysterectomy completed [facility], L.L.CCharles 12/21/2023 14:51:34 procedure on urinary bladder completed [facility], L.LCharlesCCharles 12/21/2023 14:51:53 LASIK completed [facility], L.L.CCharles 12/21/2023 14:52:08 Imaging Results None recorded. Procedure Notes None recorded. Medical Equipment None Reported. Allergies Allergen ID Allergen Name Allergen Category Reaction Reaction Severity Criticality Documentation Date Start Date Code Code System Note Provider Name and Address Organization Details Recorded Time 80866 Shellfish (substanc e) food,medi cation abdominal pain vomiting moderate mild low 04/07/2023 38646 9006 SNOMED React ion: Abdom inal pain, Nause a [facility], L.L.CCharles 14:49:58 Medications Name Sig Start Date Stop Date Status Note LastModified by Organization Details LastModified Time ferny dexa,diph ,nystat,t etra 0.5/12.5/ 397009/3g ga SWISH AND EXPECTOR ATE A SMALL [...] lorothiaz jamal every morning 05/07 completed cs/smf; 67003; Recorded 10/27/19 7:52AM by Twyla Marie (Authori [...] derm; 0; Recorded 09/25/19 1:41PM by Edna Bagley, RN, Office Visit; Not Available Not Available Not Available Vitamin D3 daily 12/02 completed 0; Recorded 09/25/19 1:41PM by Edna Bagley RN, Office Visit; Not Available Not Available Not Available Cristel C daily active Not Available Not Avail able Not Available OneTouch UltraMini kit two times daily 2020 active please give lancets and strips that are compatib le with machine VO CS/smf E11.65; 10535; Recorded 09/25/19 1:41PM by Edna Bagley, RN (Authori tushar through Bonifacio Smith DO), Office Visit; Refill Quantity : 0; [...] height Body mass index (BMI) Body weight Heart rate Oxygen saturation Systolic And Diastolic Provider Name and Address Organization Details Last Updated DateTime 157.48 cm 26.3 kg/m2 66648.3 g 71 /min 93 % 142/70 mm[Hg] YESSICA HOOD [facility], L.L.CCharles 5 14:38:20 Date Recorded Body height Body mass index (BMI) Body weight Heart rate Systolic And Diastolic Provider Name and Address Organization Details Last Updated DateTime 04/01/2025 157.48 cm 26.5 kg/m2 28164.89 g 72 /min 132/60 mm[Hg] JAS COLLINS [facility], L.L.C. 5 16:54:24 Date Recorded Body height Body mass index (BMI) Body weight Respiratory rate Heart rate Oxygen saturation Systolic And Diastolic Provider Name and Address Organization Details Last Updated DateTime 4 157.48 cm 26 kg/m2 14465.1 2 g 20 /min 70 /min 91 % 134/56 mm[Hg] PATRIA BAGLEY [facility] L.L[facility]C. 4 14:13:44 Date Recorded Body height Body mass index (BMI) Body weight Body temperature Oxygen saturation Heart rate Systolic And Diastolic Provider Name and Address Organization Details Last Updated DateTime 5 157.48 cm 25.6 kg/m2 29734.9 3 g 97.5 [degF] 93 % 76 /min 160/70 mm[Hg] SKYLA BLAKE [facility] 5 15:55:44 Date Recorded Body height Body mass index (BMI) Body weight Oxygen saturation Heart rate Systolic And Diastolic Provider Name and Address Organization Details Last Updated DateTime 5 157.48 cm 25.6 kg/m2 86376.9 3 g 93 % 63 /min 122/70 mm[Hg] YESSICA SMITHRIS [facility] 5 15:57:09 Social History Question Answer Notes LastModified by Organizat ion Details LastModified Time Tobacco Smoking Status Never Smoker PATRIA CHRIS [facility] 02/14/2023 14:11:25 Are You Blind Or Do You Have Difficulty Seeing? No [email or web address] Information not available 02/14/2023 Are You Deaf Or Do You Have Serious Difficulty Hearing? No [email or web address] Information not available 02/14/2023 Have You Had Direct Contact, Or Contact During Intimacy, With Monkeypox Rash, Scabs, Or Body Fluids From A Person With Monkeypox? No [email or web address] Information not available 02/14/2023 What Was The Date Of Your Most Recent Tobacco Screening? 04/01/2025 [email or web address] Information not available 04/01/2025 Has Tobacco Cessation Counseling Been Provided? No Information not available 05/07/2023 Have You Recently Traveled Abroad? No Information not available 02/14/2023 Do You Have Difficulty Walking Or Climbing Stairs? No [email or web address] Information not available 02/14/2023 Sex: Unknown Functional Status Question Answer Note LastModified by Organizat ion Details LastModified Time Do you use any illicit or recreational drugs? No Information not available 12/21/2023 Do you or have you ever used any other forms of tobacco or nicotine? No [email or web address] Information not available 05/07/2023 What is your level of alcohol consumption? None Information not available 12/21/2023 Are you able to walk independently without assistance or assistive devices? [email or web address] Information not available 02/14/2023 Do you have difficulty doing errands alone? No [email or web address] Information not available 02/14/2023 Are you able to care for yourself independently? Yes [email or web address] Information not available 02/14/2023 Do you have difficulty dressing, bathing, grooming, or toileting? No [email or web address] Information not available 02/14/2023 Mental Status Question Answer Note LastModified by Organization D etails LastModified Time Do you have difficulty concentrating, remembering or making decisions? No [email or web address] Information no t available 02/14/2023 Family History Relationship Description Onset Age of this Age Resolved Age Notes LastModified by Organization Details LastModified Time Mother Essential hypertension [email or web address] Not available 16:56:30 Medical History Condition Response Coronary Artery Disease N Other N Gout N Kidney Stones N Blood Diseases N Hyperthyroidism N Breast Cancer N Blood Transfusion N Depression N Hypothyroidism N Lung Disease N COPD N Developmental or Behavioral Disorders N Defects or Inherited Disease N Breast Problem N Difficulty Swallowing N Anesthesia Complications N Anxiety Disorder N Meniere's disease N Muscle, Joint, or Bone Problems N Vision or Eye Problems N Arthritis N Infertility N Polyps N Cancer N Stroke N Varicosities N Endometriosis N Bladder or Kidney Problems N High Cholesterol N Liver Disease N Fibromyalgia N Headaches N Kidney Disease N Allergies/Hayfever N Heart [...] 50 mcg/0.25mL dose 10/03/2021 completed YESSICA butler [facility] 10/06/2024 14:29:35 COVID-19, mRNA, LNP-S, PF, 100 mcg/0.5mL dose or 50 mcg/0.25mL dose 01/15/2021 completed YESSICA butler [facility] 10/06/2024 14:29:35 COVID-19, mRNA, LNP-S, PF, 100 mcg/0.5mL dose or 50 mcg/0.25mL dose 02/12/2021 completed YESSICA butler [facility] 10/06/2024 14:29:35 Past Encounters Encounter ID Performer Location Encounter Start Date Encounter Closed Date Diagnosis/Indication Diagnosis SNOMED-CT Code Diagnosis ICD10 Code Diagnosis IMO Codes Diagnosis Note [id number] Bonifacio Smith DO [facility] ([facility]) [address] [place] [address] 02/14/2023 14:02:40 02/14/2023 15:16:33 Cirrhosis of liver 43968692 K74.60 Hyperglycemia 93251844 R 73.9 Gastroesop hageal reflux disease without esophagitis 745104198 K21.9 Essential hypertension 94377906 I10 Iron defic iency anemia 78446031 D50.9 Restless l egs syndrome 34677026 G25.81 [id number] ISIS CHAVES [facility] ([facility]) [address] [place] [id number] 04/14/2023 15:35:05 04/24/2023 10:07:30 Infection of tooth 836507377 K04.7 Mouth symptoms 446516678 R68.89 [id number] Bonifacio Smith DO [facility] ([facility]) [address] [place] [address] 5 04/23/2023 14:10:08 04/23/2023 19:25:02 Xerostomia 19839897 R68.2 Cirrhosis of liver 007 K74.60 Nausea 222492774 R11.0 [id number] Bonifacio Smith DO [facility] ([facility]) [address] [place] [address] 5 05/07/2023 14:56:33 05/07/2023 15:36:46 Painful mouth 738501281 K13.79 [id number] Bonifacio Smith DO [facility] ([facility]) [address] [place] [address] 5 07/30/2023 15:24:34 07/30/2023 15:56:22 Type 2 diabetes mellitus without complication 018790043 E11.9 Hypertensive disorder 38 726554 I10 Anti-nucle ar factor detected 087750321 R76.8 Cirrhosis of liver 007 K74.60 [id number] IVY BALL PA-C [facility] ([facility]) [address] [place] [address] 5 10/26/2023 12:42:43 10/26/2023 14:03:19 Dysuria 19383224 R30.0 Mixed urin ayla incontinence 460609742 N39.46 Acute urin ayla tract infection 268772383 N39.0 [id number] Bonifacio Smith [facility] ([facility]) [address] [place], [place] [address] 11/29/2023 10:26:32 11/30/2023 12:17:44 Hypertensive disorder 57234058 I10 Type 2 adriana betes mellitus without complication 018454016 E11.9 [id number] Bonifacio Smith [facility] ([facility]) [address] [place], [place] [phone] 12/03/2023 15:29:50 12/03/2023 15:48:27 Type 2 diabetes mellitus without complication 221383821 E11.9 Cirrhosis of liver 007 K74.60 [id number] ISIS TAI [facility] ([facility]) [address] [place] [id number] 12/21/2023 14:37:17 12/21/2023 16:05:14 Dysuria 14972991 R30.0 Acute urin ayla tract infection 060687719 N39.0 UA results reviewed and discussed with pt. We will start antibiotic s. Pt will increase oral fluids and can use cranberry. Return to office with no improvemen t or any problems. Go to ER with severe worsening or severe problems.W e will obtain urine culture [id number] Bonifacio Smith DO [facility] ([facility]) [address] [place] [phone] 03/31/2024 10:00:45 04/01/2024 11:54:46 Hypertensive disorder 03106225 I10 Type 2 adriana betes mellitus without complication 103197827 E11.9 [id number] Bonifacio Smith DO [facility] ([facility]) [address] [place], [place] [address] 04/07/2024 14:02:28 04/07/2024 14:52:42 Type 2 diabetes mellitus without complication 492102166 E11.9 Hypertensive disorder 38 093442 I10 Cramp in lower limb 4499 56290 R25.2 Persistent insomnia 1919 24649 G47.09 [id number] Milton Pugh MD [facility] ([facility]) [address] [place] [id number] 10/06/2024 14:19:26 10/07/2024 15:12:19 Type 2 diabetes mellitus without complication 246557347 E11.9 Diabetes mellitus 667593 09 E11.9 Osteoarthritis 970767174 M19.90 Pain of bi lateral knee joints 6018874266 98570 M25.561 M25.562 Nausea 937660305 R11.0 Gastroesop hageal reflux disease 291592411 K21.9 [id number] Milton Pugh MD [facility] ([facility]) [address] [place] [id number] 04/01/2025 14:55:43 04/02/2025 10:22:05 Dysuria 93395079 R30.0 19227 Cirrhosis of liver 61440 007 K74.60 Pancytopenia 053511944 D 61.818 00016 followed by oncology and s/p iron infusions Well contr olled type 2 diabetes mellitus 632929877 E11.9 019859 Multiple a ctinic keratoses 962625779 L57.0 318386 Essential hypertension 69584263 I10 16623 Acute urin ayla tract infection 822771773 N39.0 041941 [id number] Yaneth Zaman MD [facility] ([facility]) [address] [place] [phone] 05/06/2025 15:29:25 05/13/2025 07:22:19 Dysuria 78414615 R30.0 78970 Acute cystitis 92442481 N30.00 1392618 [id number] Milton Pugh MD [facility] ([facility]) [address] [place] [id number] 5 06/24/2025 15:27:21 06/24/2025 16:58:37 Osteoarthritis 441761907 M19.90 Acute urin ayla tract infection 126181674 N39.0 014546 Type 2 adriana betes mellitus 62140609 E11.9 68544671 Health Concerns Section Related Observation LastModified by Organization Detai ls LastModified Time None Recorded Concern Status LastModified by Organization Details LastModified Time None Recorded Advance Directives Directive None Recorded Payers Insurance Date Sequence Insurance Name Policy Number Policy Arzola Covered Member ID Arzola Member ID Guarantor Name 05/06/2025 [place] Alda Dupont Zach [id number] Alda P Zach 06/21/2025 [place] Alda P Zach [id number] Alda P Zach 06/21/2025 1 [place] Alda P Zach [id number] Alda P Zach 05/06/2025 1 [place] Aldapenny Serrano [id number] Alda Serrano 06/21/2025 2 () Aldapenny Serrano [id number] Alda Serrano Notes Date Note Type Note Provider Name and Address Organization Details Recorded Time 04/07/2024 text/html DiabetesReported by PatientHPIFor control, patient reportsworsened since last visitbut reportsusually well controlled. For duration, patient reportschronic. For compliance, patient reportscompliant with medications.ROS as noted in the HPI Bonifacio Smith DO [address] [place], [address], [facility] 04/07/2024 14:38:26 10/06/2024 text/html DiabetesReported by PatientHPIFor duration, patient reportschronic. For control, patient reportsusually well controlled,improved since last visit, andtreated with diet and oral medications (glipizide). For compliance, patient reportscompliant with medications. For self care, patient reportsmonitoring glucose daily. For associated symptoms, patient reportsno increased thirst,no increased appetite, andno increased urination. Hypertension IM/FMReported by PatientHPIFor quality, patient reportshere for check-up. For onset/timing, patient reportsgradual onset. For alleviating factors, patient reportsmedication. For self care, patient reportsnon-smoker. For associated symptoms, patient reportsno shortness of breath,no palpitations, andno chest pain. For risk factors, patient reportsdiabetes. Went to ER back in May, got a letter in the mail in August saying that she had a kidney stone, she would like to discuss. I reviewed the letter, it actually says it was a CT Kidney stone analysis that demonstrated cirrhosis and splenomegaly and Cholelithiasis. Milton Pugh MD [address] [place] [address], [phone], [facility] 10/06/2024 15:25:14 04/01/2025 text/html Lower Urinary Tr act Symptoms (LUTS)Reported by PatientHPIFor quality, patient reportspressure. For onset/timing, patient reportsconstant. For context, patient reportsdenies excessive fluid intake. Milton Pugh MD [address] [place] [address], [phone], [facility] 04/01/2025 17:43:00 05/06/2025 text/html Lower Urinary Tr act Symptoms (LUTS)Reported by PatientHPIFor associated symptoms, patient reportsflank pain,low back pain,chills,weak force of stream,straining, andurgency. For severity, patient reportsnot changing. For onset/timing, patient reportsconstant.ROS as noted in the HPI Yaneth Zaman MD [address] [place] [address], [phone], [facility] 05/12/2025 15:34:09 06/24/2025 text/html DiabetesReported by PatientHPIFor duration, patient [...] hand is the worse. Milton Pugh MD [address] [place] [address], [phone], [facility] 06/24/2025 16:58:16 OBGyn Episode No OBEpisode recorded.
--- OUTSIDE RECORDS SUMMARY | 2025-08-02 22:29 | XMS_ITS | Patient Health Record ---
Author Organization [facility] Address [address] [place] [address] Care Team Providers Care Ocular Care Aide Name Role Phone Milton Pugh Primary Care Provider UnavailKim Bo Unavailable [phone] Merrick Strange MD Unavailable Unavailable David Cage Unavailable [phone] Allergies Allergen (clinical drug ingredient) Drug/Non Drug Allergy documented on EMR Reaction Allergy Type Onset Date Status empagliflozin Jardiance UTIS Drug Allergy Act celestina Shellfish (FN) Shellfish-derived Products Unknown Drug Allergy Active Results Component Value Reference Range Notes Schedule Confirmation (Not y et reviewed by provider) Interpretation: Performing Lab: Notes/Report: US Abdomen Complete EGD, Upper GI Diagnostic-[id number] Reviewed date:05/07/2025 01:53:06 PM Interpretation: Performing Lab: Notes/Report: [place] [id number] Reviewed date:04/05/2025 11:16:26 PM Interpretation: Performing Lab: Notes/Report: Diagnosis Description: Unspecified cirrhosis of liver Alpha Feto Prot 2.3 2.2-8.1 ng/mL Performed o n Siemens Atellica Solution IM US Abdomen Complete-[id number] (N ot yet reviewed by provider) Interpretation: Performing Lab: Notes/Report: [id number]=iSite Schedule Confirmation (Not y et reviewed by provider) Interpretation: Performing Lab: Notes/Report: US Abdomen Complete Glucometer WBG--[id number] Reviewed date:04/28/2025 09:03:57 AM Interpretation: Performing Lab: Notes/Report: Glucometer WBG 109 65-110 MG/DL Meter: [id number]~Die Lay Out Worker: [id number] ALAYNA SMITH US Abdomen Complete-[id number] (N ot yet reviewed by provider) Interpretation: Performing Lab: Notes/Report: See Below For Report US Abdomen Complete Diagnosis Description: Unspecified cirrhosis of liver Read See Below For Report Colonoscopy, High Risk Sharon [id number] Reviewed date:05/07/2025 01:52:57 PM Interpretation: Performing Lab: Notes/Report: Reason For Referral No Information Medications Medication SIG (Take, Route, Frequency, Duration) Notes Start Date End Date Status Vitamin D-3 25 MCG (1000 UT) Capsule 1 capsule Orally Once a day Active Turmeric 500 MG Capsule as directed Orally Active PreserVision AREDS 2 - Capsule as directed Orally Active Ondansetron 4 MG Tablet Disintegrating 1 tablet on the tongue and allow to dissolve Orally 3 times a day; Duration: 2 days 04/02/2025 Active Belington 3 1000 MG Capsule 1 capsule Orally Three times a day Active Neuriva - Capsule as directed Orally Active Lactulose 20 GM/30ML Solution 15 mL as needed, as directed Orally twice a day; Duration: 30 days 04/02/2025 Active Metoclopramide HCl 10 MG Tablet 1 tablet before meals Orally once a day Unknown glipiZIDE 5 MG Tablet 1 tablet 30 minute s before breakfast Orally Once a day Active metFORMIN HCl ER 500 MG Tablet Extended Release 24 Hour 1 tablet with evening meal Orally Once a day Unknown DULoxetine HCl 20 MG Capsule Delayed Release Particles 1 capsule Orally Once a day Active Cristel-C 500-550 MG Tablet 1 tablet Orall y once a day Unknown Bisoprolol-hydroCHLOROthiazi de 2.5-6.25 MG Tablet 1 tablet Orally Once a day Active Cetirizine HCl 10 MG Tablet 1 tablet Ora lly Once a day Unknown PriLOSEC OTC 20 MG Tablet Delayed Release 1 tablet 30 minutes before morning meal Orally Once a day Active Social History Tobacco Use: Social History Observation Description Date Details (start date - stop date) Never Smoker NA - NA Social History Drugs/Alcohol: Social Info Question Answer Notes Caffeine Intake: 1-2 cups per day Tobacco Use: Social Info Question Answer Notes xTobacco Use/Smoking Are you a nonsmoker Additional Details Category Social Info Options Details Drugs/Alcohol: Do you drink alcohol? No zzMigrated Social History Migrated Socia l History Smoking Status:Never smoked tobacco (finding) Problems Problem Type SNOMED Code ICD Code Onset Dates Problem Status W/U Status Risk Notes Problem Oesophageal varices without bleeding (63681097) Secondary esophageal varices without bleeding (I85.10) Active confirmed Problem Benign neoplasm of stomach (76814066) Polyp of stomach and duodenum (K31.7) Active confirmed Problem Cirrhosis of liver (92787138) Unspecified cirrhosis of liver (K74.60) Active confirmed Problem [place] - Nonalcoholic steatohepatitis (424019641) Nonalcoholic steatohepatitis (MCFARLAND) (K75.81) Active confirmed Problem Portal hypertension (77803193) Portal hypertension (K76.6) Active confirmed Problem Essential hypertension (06995855) Essential hypertension (I10) Active confirmed Problem Type II diabetes mellitus without complication (439330831) Type 2 diabetes mellitus without complication, without long-term current use of insulin (E11.9) Active confirmed Problem Rosacea (885139766) Rosacea (L71.9) Active conf irmed Problem Constipation (05242109) Constipation (K59.00) Active confirmed Problem Benign neoplasm of colon (65739472) Adenomatous polyp of colon, unspecified part of colon (D12.6) Active confirmed Problem History of adenomatous polyp of colon (467120758) History of adenomatous polyp of colon (Z86.010) Active confirmed Problem Esophageal varices without bleeding (98895694) Esophageal varices without bleeding, unspecified esophageal varices type (I85.00) Active confirmed Problem Diverticular disease of colon (860497048) Colonic diverticular disease (K57.30) Active confirmed Problem Gastroesophageal reflux disease (324286484) Gastroesophageal reflux disease, unspecified whether esophagitis present (K21.9) Active confirmed Vital Signs Heart Rate 71 /min 04/02/2025 Temperature 97.3 degrees Fahrenheit 04/02/2025 Oximetry 91 % 04/02/2025 Blood pressure diastolic 50 mm Hg 04/02/2025 Weight-kg 63.96 kg 04/02/2025 Height 61 in 04/02/2025 Blood pressure systolic 148 mm Hg 04/02/2025 Weight 141 lbs 04/02/2025 BMI 26.64 kg/m2 04/02/2025 Encounters Encounter Location Date Provider Diagnosis [facility] [address] [place] [address] 04/28/2025 David Cage History of adenomatous polyp of colon Z86.010 ; Unspecified cirrhosis of liver K74.60 and Esophageal varices without bleeding, unspecified esophageal varices type I85.00 [facility] [address] [place] [address] 04/02/2025 Kim Joel Esophageal varices without bleeding, unspecified esophageal varices type I85.00 ; Unspecified cirrhosis of liver K74.60 ; Type 2 diabetes mellitus without complication, without long-term current use of insulin E11.9 ; Gastroesophageal reflux disease, unspecified whether esophagitis present K21.9 ; Portal hypertension K76.6 ; Screening for colon cancer Z12.11 ; History of adenomatous polyp Z86.018 ; Constipation K59.00 and Blood pressure check Z01.30 [facility] [address] [place] [address] 04/05/2025 Kimharper Jimenezklin [facility] [address] [place] [address] 04/03/2025 Kim [facility] [address] [place] [address] 03/12/2025 Kim Joel [facility] [address] [place] [address] 04/15/2025 Kim Joel History of adenomatous polyp of colon Z86.0101 Assessments Encounter Date Diagnosis (ICD Code) Assessment Notes Treatment Notes Treatment Clinical Notes Section Notes 04/02/2025 Unspecified cirrhosis of liver (ICD-10 - K74.60) Chronic cirrhosis secondary to nonalcoholic fatty liver disease complicated with: portal hypertension, history of esophageal varices, leukopenia, thrombocytopenia, and hyperbilirubinemia. No evidence of active gastrointestinal bleeding at this time. No evidence of significant or symptomatic ascites at this time. No evidence of acute hepatic encephalopathy at this time. Last labs: 02/12/2025 PT 12.8, INR 1.22.03/10/2025 folate 123, sodium 133, BUN 11, creatinine 0.4, ferritin 8.5, bilirubin 2, AST 61, ALT 18, albumin 3.6, alk phos 116, B12 826, WBC 1.49, RBC 3.88, hemoglobin 11.4, MCV 90.2, platelets 35. The patient reports she had a bone marrow biopsy in February 2025 for evaluation of pancytopenia. She is followed by Dr. Strange. MELD 3.0: 15, using PT/INR from 02/12/25 No abdominal imaging on file for review. Discussed cirrhosis diagnosis, complications, prevention strategies, chronic management, and need for routine follow-up. Advised to avoid hepatotoxic medications and substancesAFP and abdominal ultrasound ordered. Monitor for signs of decompensation and cirrhosis complications Follow up: 6 months. Advised to call as needed for acute concerns or questions. 04/02/2025 Esophageal varices without bleeding, unspecified esophageal varices type (ICD-10 - I85.00) Previous endoscopy records reviewed and noted. Last EGD 2021. Surviellence EGD due 2022. EGD procedure, risks, benefits, potential complications, and potential interventions discussed. Questions answered to apparent satisfaction. Verbalizes understanding. Desires to proceed with the proposed plan. Schedule EGD with Dr. Cage Advised to avoid OTC supplements, NSAIDs, and aspirin 3 days prior to endoscopy Continue beta melissa/diuretic combination medication. 04/28/2025 Unspecified cirrhosis of liver (ICD-10 - K74.60) Proceed with surveillance EGD today. 04/28/2025 History of adenomatous polyp of colon (ICD-10 - Z86.010) Proceed with high risk surveillance colonoscopy today. 04/15/2025 History of adenomatous polyp of colon (ICD-10 - Z86.0101) 04/28/2025 Esophageal varices without bleeding, unspecified esophageal varices type (ICD-10 - I85.00) 04/02/2025 Type 2 diabetes mellitus without complication, without long-term current use of insulin (ICD-10 - E11.9) 04/02/2025 Gastroesophageal reflux disease, unspecified whether esophagitis present (ICD-10 - K21.9) 04/02/2025 Portal hypertension (ICD-10 - K76.6) 04/02/2025 Screening for colon cancer (ICD-10 - Z12.11) 04/02/2025 History of adenomatous polyp (ICD-10 - Z86.018) Colon cancer risks, prevention strategies, and screening guidelines discussed with the patient. Risk factors: Age, history of adenomatous polyps Prior endoscopy records reviewed and noted. Last colonoscopy was 2019. Recommend surveillance colonoscopy. Colonoscopy procedure, risks, benefits, potential complications, and potential interventions discussed. Bowel preparation was discussed and written instructions provided. Questions answered to apparent satisfaction. Verbalizes understanding. Desires to proceed with the proposed plan. Schedule colonoscopy with Dr. Cage Colonoscopy bowel prep sent to [facility] pharmacy and instructions were reviewed with the patient. Advised to avoid any OTC supplements, NSAIDs, and aspirin 3 days prior to endoscopy. Follow-up to be arranged based on endoscopy findings and interventions 04/02/2025 Constipation (ICD-10 - K59.00) Recommend increased water intake. Start Lactulose. Recommend patient titrate lactulose to have 2 to 3 soft bowel movements per day. 04/02/2025 Blood pressure check (ICD-10 - Z01.30) Plan Of Treatment Pending Test Test Name Order Date US Abdomen Complete-[id number] 04/02/2025 US Abdomen Complete-[id number] 04/30/2025 Colonoscopy, High Risk Screening-G0105 0 04/02/2025 Schedule Confirmation 04/30/2025 Schedule Confirmation 04/30/2025 Next Appt Details Provider Name:Kim tomlin, 10/08/2025 01:30:00 PM, [address], [place], [address], Insurance Providers Payer Name Payer Address Payer Phone Subscriber Number Group Number Insured Name Patient Relationship to Insured Coverage Start Date Coverage End Date [place] Medicare [address] [place] [phone] [id number] Alda Serrano Self - patient is the insured [facility] [address] [address] [place] [address] [id number] Alda Serrano Self - patient is the insured Medical (General) History Medical History History ICD Code Problem:Arthritis (disorder) , Status :: Active Problem:Diabetes mellitus type 2 (disord er) , Status :: Active Problem:Gastroesophageal reflux disease (disorder) , Status :: Active Problem:Hyperlipidemia (disorder) , Stat us :: Active Problem:Hypertensive disorde r, systemic arterial (disorder) , Status :: Active osteoporosis Rosacea hemorrhoids HX blood transfusion during sciatica fatty liver chronic bladder infections Measles, mumps, chickenpox anemia bladder infections Back Trouble bronchitis cataracts cirrhosis colonic polyps Kidney disease Rashes, Skin Problems Surgical History Surgery Date(Month/Year) Bone marrow extraction 2010 hysterectomy, total 02/1980 cataract-lens implants both eyes 07/2014 tubal ligation bilateral 12/1974 section 12/1973 Hospitalization History Reason Date(Month/Year) surgeries
[2025-08-02 22:33] VITALS: BP 170/69; PULSE 67; RESP 15; O2SAT 91
--- NOTE | 2025-08-02 22:49 | XRR_ITS ---
PROCEDURE INFORMATION: Exam: XR Chest Exam date and time: 08/02/2025 10:52 PM Age: 79 years old Clinical indication: Chest pressure; C/O chest pain; Additional info: Cp TECHNIQUE: Imaging protocol: Radiologic exam of the chest. Views: 1 view. COMPARISON: CR XR chest 1V portable [id number] 06/07/2024 4:41 PM FINDINGS: Lungs: Diffuse interstitial disease in the lung bases. No focal infiltrates. Pleural spaces: No pleural effusion or pneumothorax noted. Heart/Mediastinum: There is no cardiomegaly. Bones/joints: No acute osseous abnormality. Intraperitoneal space: There is no free intraperitoneal gas. XR/XR chest 1V portable [id number] IMPRESSION: No acute findings.
--- NOTE | 2025-08-02 22:55 | W.ED.CHESTPA ---
HPI - Chest Pain General: Chief Complaint: Chest Pain Stated Complaint: CP Time Seen by Provider: 08/02/25 22:28 History of Present Illness: patient is a 79F with a hx of HTN and DM who presents to the ED with 3d of intermittent CP that is substernal does not radiate, is brought on by gardening and other extertional activities, no assoc SOB, diaphoresis, NV. describes it as a light discomfort, quickly resolves with rest, does not recall recent provocative cardiac testing. no hx of [place], CHF, lifestime nonsmoker, takes one medication for HTN only. has not had any recent FLS, NVD, urinary sx. was told she has [place] cirrhosis, has never drank etoh, had an EGD a few months ago with no varices, does not take any medications for this, denies any recent confusion, bleeding, jaundice. Associated symptoms: Deny abdominal pain, dyspnea, fever(s) or palpitations Related Data Home Medications ?Medication ?Instructions ?Recorded ?Confirmed bisoprolol 2.5 ea PO 09/12/22 06/17/25 mg-hydrochlorothiazide 6.25 mg tablet glipizide 5 mg tablet, extended 5 mg PO DAILY 04/23/24 06/17/25 release 24 hr blood sugar diagnostic (Accu-Chek #10 ea 01/12/25 06/17/25 Guide test strips) diclofenac sodium 3 % topical gel topical 01/12/25 06/17/25 omeprazole 20 mg capsule,delayed mg PO 01/12/25 06/17/25 release metoclopramide HCl 10 mg tablet 10 mg PO PRN 03/10/25 06/17/25 ondansetron 4 mg disintegrating mg PO PRN 03/10/25 06/17/25 tablet Allergies Allergy/AdvReac Type Severity Reaction Status Date / Time shellfish derived Allergy ADR-Nausea Verified 06/17/25 12:54 Review of Systems General: Reports: 10 or more systems reviewed and unremarkable except in HPI and below Const: Denies: fever(s) or chills Eyes: Denies: change in vision or eye discharge Card: Reports: chest pain; Denies: palpitations or swelling of feet/ankles Resp: Denies: dyspnea or productive cough GI: Denies: abdominal pain or diarrhea Musc: Denies: neck pain or back pain Skin/Breast: Denies: rash or jaundice Neuro: Denies: headache(s), numbness in extremities or weakness in extremities Luis/Lymph: Denies: easy bruising or easy bleeding PFSH ED PFSH: Medical History (Updated 08/03/25 @ 01:47 by Mateo Santiago DO) No pertinent family history Peripheral arterial disease Social History Smoking and tobacco/nicotine status: never used tobacco/nicotine Physical Exam Narrative: EXAM NARRATIVE: Patient overall well-appearing, afebrile and vital signs stable on arrival, no acute distress. head normocephalic, PERRL, moist mucous membranes, no cervical LAD. breathing comfortably on RA, saturating well, clear BL and no adventitious breath sounds, able to speak in full sentences without getting SOB, no signs of respiratory distress. NSR with no murmurs, no leg swelling, 2+ pulses throughout, good cap refill. Abdomen soft, nontender, nondistended, no localizing or peritonitic signs, no overlying skin changes, no CVA ttp. 4 extremities without apparent deformity or injury. GCS 15, AAOx4, able to answer questions and follow commands appropriately, moving all 4 extremities symmetrically and spontaneoulsy. Normal mood and affect. Course Vital Signs: Vital signs: Vital Signs Temperature 98.5 F 08/02/25 22:22 Pulse Rate 63 08/03/25 02:01 Respiratory Rate 20 H 08/03/25 02:01 Blood Pressure 139/68 08/03/25 02:01 Pulse Oximetry 92 08/03/25 02:01 Oxygen Delivery Me thod Room Air 08/03/25 01:03 Oxygen Flow Rate 2 08/03/25 00:02 MDM - Chest Pain Medical Decision Making -ddx: ACS, dysrhythmia, URI, PNA, CHF, GERD, gastritis -patient with 4d of clinically sounding stable angina on exam, became more persistent tonight, completely reliveed with NTG, has not had prior provocative stress testing, only hx of HTN but seemingly very healthy for age, EKGs with no ST changes, troponins x2 <6 with no delta. other labs reassuring for no other concerning secondary causes of CP, CXR with no infiltrates, cardiomegaly, effusions or vascular congestion, no PTX. with pain completely resolved with NTG, no recurrences, only developed with activity and quickly resolved with rest, was deemed stable angina, with reassuring EKG and negative troponins, had shared decision making with patient and daughter about being admitted for Cards eval and consideratino for provocative testing, but they preferred outpatient fu which was reasonable bc of above, HEART score of 5 and so referred for quick outpatient Cards eval and dc'd in stable condition with strict return precautions given. Lab Data 08/02/25 22:35 08/02/25 22:35 Radiology Impressions Chest X-Ray 08/02/25 22:49 IMPRESSION: No acute findings. Chest CTA 08/02/25 23:10 IMPRESSION: 1. No pulmonary embolism. 2. No focal consolidation, pleural effusion, or pneumothorax. 3. Hepatic cirrhosis. Recanalization of the umbilical vein. Splenomegaly, partially included in the field of view. Laboratory Results WBC 2.13 10^3/uL (3.29-11.43) L 08/02/25 22:35 RBC 4.01 10^6/uL (3.85-5.65) 08/02/25 22:35 Hgb 13.60 g/dL (11.27-16.99) 08/02/25 22:35 Hct 39.2 % (36-47) 08/02/25 22:35 MCV 97.8 fl (85-98) 08/02/25 22:35 MCH 33.9 pg (27-33) H 08/02/25 22:35 MCHC 34.7 g/dL (30-55) 08/02/25 22:35 RDW 15.6 % (12.1-15.1) H 08/02/25 22:35 Plt Count 43 10^3/cmm (157-399) L 08/02/25 22:35 MPV 11.6 fL (7.4-10.4) H 08/02/25 22:35 Neut % (Auto) 60.1 % 08/02/25 22:35 Lymph % (Auto) 30.5 % 08/02/25 22:35 Carroll % (Auto) 7.5 % 08/02/25 22:35 Eos % (Auto) 1.9 % 08/02/25 22:35 Baso % (Auto) 0.0 % 08/02/25 22:35 Neut # (Auto) 1.28 10^3/uL (1.8-7.7) L 08/02/25 22:35 Lymph # (Auto) 0.7 10^3/uL (0.8-4.8) L 08/02/25 22:35 Carroll # (Auto) 0.2 10^3/uL (0.2-0.9) 08/02/25 22:35 Eos # (Auto) 0.0 10^3/uL (0.0-0.8) 08/02/25 22:35 Baso # (Auto) 0.0 10^3/uL (0.0-0.1) 08/02/25 22:35 Nucleated RBC % (auto) 0 % 08/02/25 22:35 Nucleated RBCs # 0.0 /100WBC 08/02/25 22:35 PT 16.60 SECONDS (12.1-14.9) H 08/02/25 22:35 INR 1.25 (0.8-1.2) H 08/02/25 22:35 Sodium 138 mmol/L (136-145) 08/02/25 22:35 Potassium 3.9 mmol/L (3.5-5.1) 08/02/25 22:35 Chloride 104 mmol/L (98-107) 08/02/25 22:35 Carbon Dioxide 24 mmol/L (22-29) 08/02/25 22:35 Anion Gap 13.9 (5-19) 08/02/25 22:35 BUN 8 mg/dL (8-23) 08/02/25 22:35 Creatinine 0.3 mg/dL (0.5-0.9) L 08/02/25 22:35 GFR Calculation Not Reportable 08/02/25 22:35 Glucose 127 mg/dL (65-115) H 08/02/25 22:35 Calculated Osmolality 286 mOsm/kg (285-295) 08/02/25 22:35 Calcium 9.2 mg/dL (8.5-10.5) 08/02/25 22:35 Phosphorus 2.9 mg/dL (2.5-4.5) 08/02/25 22:35 Magnesium 2.0 mg/dL (1.7-2.3) 08/02/25 22:35 Troponin T Baseline < 6 ng/L (0-10) 08/02/25 22:35 Troponin T 120 Minute < 6.0 ng/L (0-10) 08/03/25 00:27 Delta Troponin T 0 ABS# (0-10) 08/03/25 00:27 NT-Pro-B Natriuret Pep 187 pg/mL (0-450) 08/02/25 22:35 Lipase 50 U/L (13-60) 08/02/25 22:35 All radiology interpretation(s) finalized by discharge EKG Data EKG 1: Computer generated interpretation: NSR at 66bpm, LAD, no interval prolongation, no ST elevation or depression Clincial Decision Support The following clinical decision support tools were used to aid in care of the patient HEART Score -> History: Highly Suspicious, EKG: Normal, Age: 65 or more yrs, Risk Factors: 1 or 2 Risk Factors, Troponin: Baseline Trop <16 ng/L. Resulting HEART Score: 5. Discharge Plan Discharge Patient Disposition: Home Clinical Impression: Stable angina Condition: Stable Prescriptions: No Action bisoprolol-hydrochlorothiazide 2.5-6.25 mg tablet PO metoclopramide HCl 10 mg tablet 10 mg PO PRN glipizide 5 mg tablet extended release 24hr 5 mg PO DAILY ondansetron 4 mg tablet,disintegrating PO PRN diclofenac sodium 3 % gel topical (DME) Accu-Chek Guide test strips Strip See Rx Instructions .ROUTE .MEDSUPPLY Qty: 10 Rx Instructions: As directed omeprazole 20 mg capsule,delayed release(DR/EC) PO Discharge Orders: Discharge ED (Routine); Ordered 08/03/25 Ordered By: Mateo Santiago Referrals: Luis Manuel Suggs MD [Physician, Cardiology] - 4-7 days Discharge Diet: Usual diet Discharge Activity: Resume usual activity Patient Instructions: Opioid Safety, Pain Management, Patient Portal & Precious Instructions Activity Restrictions/Additional Instructions: You were seen for your chest pain, you were evaluated with labs, an EKG and CT scan that were ultimately reassuring. You likely have some degree of stable angina, which is a small degree of blockage to the arteries in your heart but because it relieves with rest, your EKG did not have any concerning changes and your heart enzymes were negative, you were able to be discharged home to have outpatient cardiology follow-up, contact the clinic listed above in 4 to 7 days if they have not reached out to you before then for consideration of further provocative testing. Return to the ED with severe worsening of your pain, episodes of passing out, difficulties breathing, any other emergent concerns. Print Language: Tajik Coding Level of Care Code ED Hand I Thermal Cutter for Karyn Anders Heart Score HEART Score Components History: Highly Suspicious EKG: Normal Age: 65 or more yrs Risk Factors: 1 or 2 Risk Factors Troponin: Baseline Trop <16 ng/L HEART Score RESULT HEART Score: 5
[2025-08-02 23:02] LABS: Hematocrit 39.2 % (36-47); Hemoglobin 13.60 g/dL (11.27-16.99); Mean Corpuscular HGB Conc 34.7 g/dL (30-55); Mean Corpuscular Hemoglobin 33.9 pg (27-33); Mean Corpuscular Volume 97.8 fl (85-98); Nucleated Red Blood Cells % 0 %; Platelet Count 43 10^3/cmm (157-399); Red Blood Count 4.01 10^6/uL (3.85-5.65); White Blood Count 2.13 10^3/uL (3.29-11.43)
[2025-08-02 23:03] VITALS: BP 155/59; PULSE 68; RESP 22; O2SAT 94
[2025-08-02 23:06] LABS: INR 1.25 (0.8-1.2); Prothrombin Time 16.60 SECONDS (12.1-14.9)
--- NOTE | 2025-08-02 23:10 | CTR_ITS ---
PROCEDURE INFORMATION: Exam: CTA Chest With Contrast Exam date and time: 08/03/2025 12:34 AM Age: 79 years old Clinical indication: Shortness of breath; Additional info: Pleuritic cp, desatting with clear cxr TECHNIQUE: Imaging protocol: Computed tomographic angiography of the chest with contrast. Exam focused on the arteries. 3D rendering (Not supervised by radiologist): MIP and/or 3D reconstructed images were created by the technologist. Radiation optimization: All CT scans at this facility use at least one of these dose optimization techniques: automated exposure control; mA and/or kV adjustment per patient size (includes targeted exams where dose is matched to clinical indication); or iterative reconstruction. Contrast material: OMNI 350; Contrast volume: 42 ml; Contrast route: INTRAVENOUS (IV); COMPARISON: CR (CHEST, ) 08/02/2025 10:52 PM RADIATION DOSE METRICS: Total DLP (mGy-cm): 347.36 FINDINGS: Pulmonary arteries: No pulmonary embolism. Aorta: Unremarkable. No aortic aneurysm. No aortic dissection. Lungs: Atelectasis at the left lung base Pleural spaces: No focal consolidation, pleural effusion, or pneumothorax. Heart: Unremarkable. No cardiomegaly. No pericardial effusion. Lymph nodes: Unremarkable. No enlarged lymph nodes. Liver: Hepatic cirrhosis. Recanalization of the umbilical vein. Splenomegaly, partially included in the field of view. Bones/joints: Unremarkable. No acute fracture. Soft tissues: Unremarkable. CT/CT angio chest PE protcl [id number] IMPRESSION: 1. No pulmonary embolism. 2. No focal consolidation, pleural effusion, or pneumothorax. 3. Hepatic cirrhosis. Recanalization of the umbilical vein. Splenomegaly, partially included in the field of view.
[2025-08-02 23:17] LABS: Troponin(5th) Baseline < 6 ng/L (0-10)
[2025-08-02 23:26] LABS: Anion Gap 13.9 (5-19); Blood Urea Nitrogen 8 mg/dL (8-23); Calcium 9.2 mg/dL (8.5-10.5); Carbon Dioxide 24 mmol/L (22-29); Chloride 104 mmol/L (98-107); Creatinine Clr Calc Pharmacy 48.6825; Glucose 127 mg/dL (65-115); Lipase 50 U/L (13-60); Magnesium 2.0 mg/dL (1.7-2.3); NT Pro B Type Natriuretic Pept 187 pg/mL (0-450); Osmolality Calculated 286 mOsm/kg (285-295); Potassium 3.9 mmol/L (3.5-5.1); Sodium 138 mmol/L (136-145)
[2025-08-02 23:36] VITALS: BP 140/73; PULSE 61; RESP 20; O2SAT 93
[2025-08-03 00:02] VITALS: BP 136/59; PULSE 66; RESP 17; O2SAT 92
[2025-08-03] MEDS: iohexol 350 mg/mL 500 mL Btl (per mL) IV (00:40)
--- NOTE | 2025-08-03 00:49 | ECG_ITS ---
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 Measurements Intervals [place] Rate: 66 P: 59 CA: 181 QRS: -34 QRSD: 123 T: 37 QT: 411 QTc: 432 Interpretive Statements SINUS RHYTHM LEFT AXIS DEVIATION [QRS AXIS < -30] POSSIBLE LEFT VENTRICULAR HYPERTROPHY [VOLTAGE CRITERIA PLUS LAE OR QRS WIDENING] POSSIBLE ANTEROSEPTAL MYOCARDIAL INFARCTION , OF INDETERMINATE AGE [30 ms Q WAVE IN V1-V4] INTERPRETATION BASED ON A DEFAULT AGE OF 40 YEARS Compared to ECG 06/07/2024 19:38:29 Left-axis deviation now present Myocardial infarct finding still present Electronically Signed On 08-03-2025 10:42:32 CONTACT WORKER LITHOGRAPHY by Wally Gamboa M.D. [id number]
[2025-08-03 00:54] VITALS: BP 151/74; PULSE 68; RESP 19; O2SAT 91
[2025-08-03 01:03] VITALS: BP 137/71; PULSE 67; RESP 18; O2SAT 91
[2025-08-03 01:08] LABS: Troponin 5 2HR < 6.0 ng/L (0-10); Troponin 5 2HR Delta 0 ABS# (0-10)
[2025-08-03 01:43] VITALS: BP 138/52; PULSE 81; RESP 22; O2SAT 90
[2025-08-03 02:01] VITALS: BP 139/68; PULSE 63; RESP 20; O2SAT 92
== END 2025-08-03 02:03 | disposition home or self-care (01) ==
PROVIDERS: Emergency Provider Student in an Organized Health Care Education/Training Program; PCP Family Medicine
DX: I20.89 Other forms of angina pectoris (principal)
CPT/HCPCS: 36415; 71045; 71275; 80048; 83690; 83735; 83880; 84100; 84484; 85025; 85610; 93005; 99285; J9999

== ENCOUNTER → 2025-08-17 11:16 | Outpatient (BNVA) | payer MEDICARE, OTHER, SELFPAY | PROVIDERS: PCP Family Medicine; Visit Provider Podiatrist Foot & Ankle Surgery | DX: E11.8 Type 2 diabetes mellitus with unspecified complications (principal); L60.3 Nail dystrophy; L84 Corns and callosities; L60.8 Other nail disorders; I73.9 Peripheral vascular disease, unspecified | CPT/HCPCS: 11055; 11721 ==

== ENCOUNTER 2025-08-26 08:31 | Outpatient (CLI) | payer MEDICARE, OTHER, SELFPAY ==
--- NOTE | 2025-08-26 08:44 | USCV_ITS ---
Alda Serrano Age: 79 Gender: F : 1945 Exam Date: 08/26/2025 09:34 Ordering Phys: Milton Pugh MD Technologist: Exam Location: [facility] [place] Indication: cp sob BP: 140 / 65 HR: 58 Rhythm: Sinus Technical Quality: Adequate MEASUREMENTS (Male / Female) Normal Values 2D ECHO LV Diastolic Diameter PLAX 4.9 cm 4.2 - 5.9 / 3.9 - 5.3 cm IVS Diastolic Thickness 1.4 cm 0.6 - 1.0 / 0.6 - 0.9 cm IVS Systolic Thickness 1.5 cm LVPW Diastolic Thickness 1.1 cm 0.6 - 1.0 / 0.6 - 0.9 cm LVPW Systolic Thickness 1.3 cm LVOT Diameter 2.0 cm LV Ejection Fraction 2D Teich 64.3 % LV Ejection Fraction MOD 4C 62.5 % LV Ejection Fraction MOD 2C 56.7 % LV Ejection Fraction 2C AL 61.7 % LA Diameter 4.3 cm RA Systolic Volume 4C AL 55.6 ml RA Systolic Volume 4C MOD 53.2 ml Aorta at Sinotubular Diameter 2.9 cm M-MODE LA Ao Ratio MM 1.5 AV Cusp Separation MM 2.1 cm DOPPLER AV Peak Velocity 173.0 cm/s LVOT Peak Velocity 97.0 cm/s AV Area Cont Eq vti 2.2 cm squared AV Area Cont Eq pk 1.8 cm squared MV Peak Velocity 104.0 cm/s MV Area PHT 3.7 cm squared Mitral E to A Ratio 1.0 TV Peak Velocity 265.5 cm/s TR Peak Velocity 281.0 cm/s TR Peak Gradient 31.6 mmHg TV Peak E Velocity 90.0 cm/s PV Peak Velocity 107.0 cm/s FINDINGS Left Ventricle Normal left ventricular size, systolic function and wall thickness, with no regional wall motion abnormalities. Left ventricular ejection fraction is estimated at 60 %. Grade I/IV diastolic dysfunction (abnormal relaxation filling pattern), normal to mildly elevated filling pressures. Right Ventricle Normal right ventricular size and systolic function. Right Atrium Normal right atrial size. Left Atrium Moderately increased left atrial size. IA Septum Normal appearance of the interatrial septum. Mitral Valve Moderately thickened mitral valve. No mitral valve stenosis. Mild-moderate mitral valve regurgitation. Aortic Valve Normal aortic valve structure. No aortic valve stenosis or regurgitation. Tricuspid Valve Normal tricuspid valve structure. No tricuspid valve stenosis or regurgitation. Normal pulmonary pressure. Pulmonic Valve Normal pulmonic valve structure. No pulmonic valve stenosis or regurgitation. Pericardium No pericardial effusion. Aorta Normal diameter of the aortic root and ascending thoracic aorta. IVC Normal IVC diameter. CONCLUSIONS Normal left ventricular size, systolic function and wall thickness, with no regional wall motion abnormalities. Left ventricular ejection fraction is estimated at 60 %. Grade I/IV diastolic dysfunction (abnormal relaxation filling pattern), normal to mildly elevated filling pressures. Moderately increased left atrial size. Moderately thickened mitral valve. No mitral valve stenosis. Mild-moderate mitral valve regurgitation. There is no pericardial effusion. Right atrial pressure is around 10 mm of mercury. Lissa Benítez MD (Electronically Signed) Final Date: 05 September 2025 23:20 S
== END 2025-08-26 08:32 | disposition home or self-care (01) ==
LOC: RAD 08:34
PROVIDERS: PCP Family Medicine; Visit Provider Family Medicine
DX: R06.09 Other forms of dyspnea (principal); R93.1 Abnormal findings on diagnostic imaging of heart and coronary circulation; I51.7 Cardiomegaly; I34.0 Nonrheumatic mitral (valve) insufficiency
CPT/HCPCS: 93306